=== PATIENT | male | born 1955 | race African-American/Black ===

== ENCOUNTER 2017-06-16 18:14 | Inpatient (IN) | payer MEDICARE ==
[2017-06-16] MEDS ORDERED: Morphine 4 MG/ML VIAL ONE (19:26)
[2017-06-16 19:42] LABS: #Eosinphils 0.4 thou/uL (0.0-0.7); #Lymphocytes 1.4 thou/uL (1.20-3.40); #Monocytes 0.4 thou/uL (0.11-0.59); #Neutrophils 4.3 thou/uL (1.40-6.50); %Basophils 0.6 % (0.0-1.0); %Eosinophils 5.7 % (0.0-10.0); %Lymphocytes 21.2 % (21.0-51.0); %Monocytes 6.2 % (0.0-10.0); Hematocrit 42.4 % (42.0-52.0); Mean Platelet Volume 9.1 fL (7.4-10.4); Red Blood Cell (RBC) Count 5.11 mill/uL (4.70-6.10); White Blood Cell (WBC) Count 6.5 thou/uL (4.8-10.8)
[2017-06-16 20:02] LABS: ALT (SGPT) 35 U/L (8-55); AST (SGOT) 23 U/L (5-34); Alkaline Phosphatase 103 U/L (40-150); Anion Gap 14 mmol/L (10-20); BUN (Urea Nitrogen) 17 mg/dL (8.4-25.7); Bilirubin, Total 0.5 mg/dL (0.2-1.2); CK (CPK) 280 U/L (30-200); Calc. Creatinine Clearance 0 mL/min (70-130); Carbon Dioxide 23 mmol/L (23-31); Chloride 104 mmol/L (98-107); Estimated GFR-MDRD 90; Globulin 2.6 g/dL (2.4-3.5); Protein, Total 6.6 g/dL (5.8-8.1)
[2017-06-16 20:07] LABS: Troponin I 0.155 ng/mL (< 0.028)
--- NOTE | 2017-06-16 20:12 | RAD ---
PORTABLE CHEST 06/16/17 PROVIDED CLINICAL HISTORY: Chest pain. FINDINGS: Comparison 02/05/12. The cardiac and mediastinal silhouette is unchanged in appearance. The lungs appear clear. No pleural fluid or pneumothorax apparent. IMPRESSION: No evidence for an acute cardiopulmonary process. POS: [facility]
[2017-06-16] MEDS ORDERED: Acetaminophen 325 MG TAB PO PRN (23:24)
[2017-06-16 23:48] VITALS: BMI 25.9
[2017-06-17 01:19] LABS: Troponin I 0.836 ng/mL (< 0.028)
[2017-06-17] MEDS ORDERED: Guaifenesin DM 100-10/5 ML UDCUP PO PRN (03:46)
[2017-06-17] MEDS ORDERED: Dextrose 5% in Water 1,000 ML IV PRN (03:46)
[2017-06-17] MEDS ORDERED: Dextrose 50% Abboject 50 ML SYRINGE SLOW IVP PRN (03:46)
[2017-06-17] MEDS ORDERED: ALPRAZolam 0.5 MG TAB PO PRN (03:46)
[2017-06-17] MEDS ORDERED: Nitroglycerin 0.4 MG TAB (25 Tab Bottle) PO PRN (03:46)
[2017-06-17] MEDS ORDERED: Acetaminophen 325 MG TAB PO PRN (03:46)
[2017-06-17] MEDS ORDERED: HumaLOG 300 UNITS/3 ML VIAL SC PRN (03:46)
[2017-06-17] MEDS ORDERED: HYDROcodone/Acetaminophen 10/325 mg Tablet PO PRN (03:46)
--- NOTE | 2017-06-17 04:49 | HP ---
REASON FOR ADMISSION: Chest pain. HISTORY OF PRESENTING ILLNESS: Patient gives history of left-sided chest pain which started around 5:30 p.m. yesterday. He tried to drink some water and thought if he belch the gas out in his food pipe, he would feel better, but none of this helped. He continued to have chest pain and started to have shortness of breath. He apparently fell to the floor and finally managed to call his neighbor, who called EMS and patient was brought here. No complaints of current chest pain now. He has no palpitations, PND, or orthopnea at present. He has had a stress test done in 01/2012, which was negative. No complaints of cough or expectoration or fever. PAST MEDICAL/SURGICAL HISTORY: No hypertension, history of asthma, adenoidectomy, vasectomy. CURRENT MEDICATIONS: Norvasc 10 mg daily, [place] p.r.n. for pain, Protonix 40 mg daily, Viagra p.r.n., alprazolam p.r.n., vitamin D 3000 units p.o. daily. ALLERGIES: No known drug allergies. PERSONAL HISTORY: Quit smoking a year ago. Prior to that smoked one pack a day for nearly 20 years. Does not abuse alcohol or drugs. FAMILY HISTORY: Mother of breast cancer and its complications including pericardial effusion at the age of 59 years. Father when the patient was 2 -year-old. REVIEW OF SYSTEMS: The following complete review of systems was negative, unless otherwise mentioned in the HPI or below: Constitutional: Weight loss or gain, ability to conduct usual activities. Skin: Rash, itching. Eyes: Double vision, pain. ENT/Mouth: Nose bleeding, neck stiffness, pain, tenderness. Cardiovascular: Palpitations, dyspnea on exertion, orthopnea. Respiratory: Shortness of breath, wheezing, cough, hemoptysis, fever, or night sweats. Gastrointestinal: Poor appetite, abdominal pain, heartburn, nausea, vomiting, constipation, or diarrhea. Genitourinary: Urgency, frequency, dysuria, nocturia. Musculoskeletal: Pain, swelling. Neurologic/Psychiatric: Anxiety, depression. Allergy/Immunologic: Skin rash, bleeding tendency. PHYSICAL EXAMINATION: GENERAL: Patient is a 62-year-old male who is currently not in any acute distress. VITAL SIGNS: Blood pressure 114/76, pulse 90 per minute, respiratory rate 20 per minute, temperature 97.6 degrees Fahrenheit, saturating 95% on room air. NECK: Supple, no elevated JVD. HEENT: Extraocular muscles intact. Pupils reacting to light. Oral cavity, mucous membranes are moist. No exudates or congestion. CARDIOVASCULAR SYSTEM: S1, S2 heard. Regular rhythm. RESPIRATORY SYSTEM: Air entry 1+ bilateral. Scattered rhonchi plus no wheezes. ABDOMEN: Soft, bowel sounds heard. No tenderness, rigidity, or guarding. EXTREMITIES: No peripheral edema or calf tenderness. VASCULAR SYSTEM: Peripheral pulses 2+ bilateral. No ischemic ulcerations or gangrene. CENTRAL NERVOUS SYSTEM: No gross focal deficits seen. Patient is alert, awake , oriented well. PSYCHIATRIC SYSTEM: The patient's mood is euthymic. No hallucinations or delusions. LABORATORY AND X-RAY FINDINGS: EKG done shows normal sinus rhythm at 86 beats per minute. Electrolytes are stable. BUN 17, creatinine 1.0, glucose 142. Liver enzymes within normal limits. Troponin I was indeterminate peaking up to 0.8. CK-MB is 3.6, albumin is 4.0. Chest x-ray done shows no acute cardiopulmonary abnormalities. White count of 6, H&H 14 and 42, platelet count 187. CLINICAL IMPRESSION AND PLAN: Patient will be under observation on telemetry for chest pain, rule out acute coronary syndrome. He has had indeterminate cardiac enzyme and a prior stress test done in 2011 was negative. We will consult Dr. Rivera, who is button spindler for Cardiology and also schedule him for a nuclear stress test under Cardiology close supervision. His EKGs do not reveal any ST elevation or gross ST-T wave changes at present. We will continue his Norvasc and place him on full dose aspirin for now. Pepcid 20 mg twice daily as well. We will continue to closely monitor him on telemetry. He is currently chest pain free now. MTDD
[2017-06-17 05:02] LABS: #Eosinphils 0.4 thou/uL (0.0-0.7); #Lymphocytes 1.2 thou/uL (1.20-3.40); #Monocytes 0.4 thou/uL (0.11-0.59); #Neutrophils 4.1 thou/uL (1.40-6.50); %Basophils 0.5 % (0.0-1.0); %Eosinophils 5.9 % (0.0-10.0); %Lymphocytes 19.6 % (21.0-51.0); %Monocytes 7.2 % (0.0-10.0); Hematocrit 43.4 % (42.0-52.0); Mean Platelet Volume 9.3 fL (7.4-10.4); Red Blood Cell (RBC) Count 5.21 mill/uL (4.70-6.10); White Blood Cell (WBC) Count 6.1 thou/uL (4.8-10.8)
[2017-06-17 05:09] LABS: Hemoglobin A1c 6.3 % (4.0-6.0)
[2017-06-17] MEDS: Sodium Chloride 0.9% 1,000 ML IV SCH ×2 (05:18→21:38)
[2017-06-17 05:24] LABS: Anion Gap 11 mmol/L (10-20); BUN (Urea Nitrogen) 14 mg/dL (8.4-25.7); Calc. Creatinine Clearance 100 mL/min (70-130); Calcium 9.4 mg/dL (7.8-10.44); Carbon Dioxide 27 mmol/L (23-31); Chloride 106 mmol/L (98-107); Cholesterol 234 mg/dl (< 200 Desired); Estimated GFR-MDRD Greater than 90; LDL Cholesterol, Calculated 165 mg/dL
[2017-06-17 06:20] LABS: Troponin I 1.457 ng/mL (< 0.028)
[2017-06-17] MEDS ORDERED: Heparin 1000 UNIT/NS 500ML(OR) 1,000 ML ONE (07:20)
[2017-06-17] MEDS ORDERED: Fentanyl 100 MCG/2 ML VIAL ONE (08:10)
[2017-06-17] MEDS ORDERED: Midazolam HCl 2 mg/2 ml Vial ONE (08:10)
[2017-06-17] MEDS ORDERED: Heparin 10,000 UNITS/1 ML VIAL ONE (08:39)
[2017-06-17] MEDS ORDERED: TICAGRELOR 90 MG TABLET ONE (08:39)
[2017-06-17] MEDS ORDERED: Nitroglycerin 100MG/250ML BOT 250 ML ONE (08:40)
[2017-06-17] MEDS ORDERED: Adenosine 6 MG/2 ML VIAL ONE (08:41)
[2017-06-17] MEDS ORDERED: Verapamil 5 MG/2 ML VIAL ONE (08:41)
[2017-06-17] MEDS ORDERED: Heparin 1000 UNIT/NS 500ML(OR) 500 ML ONE (08:58)
[2017-06-17] MEDS ORDERED: Enoxaparin Sodium 40 MG/0.4 ML SYRINGE SC SCH (09:00)
--- NOTE | 2017-06-17 09:07 | CON ---
REASON FOR CONSULTATION: Unstable angina. HISTORY OF PRESENT ILLNESS: Mr. Webb is a very pleasant 62-year-old gentleman who I have seen an d evaluated in the past. He was seen in the office in 2016. He also underwent a noninvasive stress study in 2011 that was negative for ischemia. He states over the last week, he has had 2 episodes of pain. It lasted for several hours. He states , he had chest tightness and heaviness associated with nausea, vomiting. He states he felt like he w as taken in cold air. He is now pain free. PAST MEDICAL HISTORY: Hypertension, vasectomy. MEDICATIONS: Norvasc, Buna, Protonix, alprazolam, vitamin D. ALLERGIES: None. SOCIAL HISTORY: Quit all tobacco products. FAMILY HISTORY: Negative for CAD. REVIEW OF SYSTEMS: Ten point review of systems is reviewed and as above, otherwise negative. PHYSICAL EXAMINATION: GENERAL: Patient is a pleasant male who is in no acute distress. The patient appears his stated age . VITAL SIGNS: Blood pressure 116/52, pulse 61, temperature 97.8. NEUROLOGIC: The patient is alert and oriented times 3 with no focal neurologic deficits. HEENT: Sclerae without icterus. Mouth has moist mucous membranes with normal pallor. NECK: No JVD. Carotid upstroke brisk. No bruits bilaterally. LUNGS: Clear to auscultation with unlabored respirations. BACK: No scoliosis or kyphosis. CARDIAC: Regular rate and rhythm with normal S1 and S2. No S3 or S4 noted. No significant rubs, mu rmurs, thrills, or gallops noted throughout the precordium. PMI is not displaced. There is no chato ternal heave. ABDOMEN: Soft, nontender, nondistended. No peritoneal signs present. No hepatosplenomegaly. No abnormal striae. EXTREMITIES: 2+ femoral and 2+ dorsalis pedis pulses. No cyanosis, clubbing, or edema. SKIN: No gross abnormalities. PERTINENT LABORATORY DATA: Hemoglobin 14.1, creatinine 0.95, peak troponin 1.4. IMAGING: EKG, normal sinus rhythm, normal EKG. IMPRESSION: 1. Unstable angina. 2. History of tobacco abuse. 3. Hypertension. RECOMMENDATIONS: Discussed the conservative versus aggressive approach. I did state the advantages to proceed with a more aggressive approach given his troponin of 1.4. I discussed coronary angiograp hy in full detail. The risks of the procedure were also discussed. The risks of the procedure inclu de but are not limited to the following: , stroke, NH, need for emergency surgery, loss of limb , bleeding, and infection, as well as a reaction to the dye causing kidney failure and needing long-t erm dialysis. I also discussed the risks of PCI to include all of the above including coronary disse ction and perforation in addition to acute stent thrombosis and restenosis. All questions about the procedure were answered. Given the above, the patient agreed to proceed with coronary angiography an d possible PCI. All questions were answered. Given the above, the patient agreed to proceed with the above procedure. I also discussed drug-coated versus nondrug coated stent placement. There are no contraindications and will proceed if needed. Further recommendations pending the above.
[2017-06-17] MEDS ORDERED: Sodium Chloride 0.9% 1,000 ML IV SCH (09:15)
--- NOTE | 2017-06-17 12:27 | PDOC.EVN ---
Event Note - Event Note Event Note: pt seen and evaluated f/u card plan
[2017-06-17] MEDS ORDERED: HYDROcodone/Acetaminophen 10/325 mg Tablet ONE (12:30)
--- NOTE | 2017-06-17 12:37 | EKG ---
Test Reason : STAT Blood Pressure : / mmHG Vent. Rate : 066 BPM Atrial Rate : 066 BPM P-R Int : 134 ms QRS Dur : 106 ms QT Int : 402 ms P-R-T Axes : 065 -67 -23 degrees QTc Int : 421 ms Normal sinus rhythm Left anterior fascicular block Minimal voltage criteria for LVH, may be normal variant Nonspecific T wave abnormality Abnormal ECG Confirmed by ABIGAIL ISAACS ([id number]) on 06/17/2017 12:37:30 PM Referred By: JENI Confirmed By:ABIGAIL ISAACS
--- NOTE | 2017-06-17 13:12 | EKG ---
Test Reason : POST STENT X2-RCA Blood Pressure : / mmHG Vent. Rate : 062 BPM Atrial Rate : 062 BPM P-R Int : 138 ms QRS Dur : 108 ms QT Int : 412 ms P-R-T Axes : 057 -58 -34 degrees QTc Int : 418 ms Normal sinus rhythm Left anterior fascicular block Minimal voltage criteria for LVH, may be normal variant Abnormal ECG Confirmed by ABIGAIL ISAACS ([id number]) on 06/17/2017 1:11:43 PM Referred By: PAMELA Confirmed By:ABIGAIL ISAACS
[2017-06-17] MEDS: Aspirin 325 MG TAB PO SCH (15:14)
[2017-06-17] MEDS: Famotidine 20 MG TAB PO SCH ×2 (15:14→21:40)
[2017-06-17] MEDS: Amlodipine 10 MG TAB PO SCH (15:14)
[2017-06-17] MEDS ORDERED: Iopamidol 370 76% 100 ML VIAL ONE (15:45)
[2017-06-18 05:30] LABS: #Eosinphils 0.5 thou/uL (0.0-0.7); #Lymphocytes 1.7 thou/uL (1.20-3.40); #Monocytes 0.4 thou/uL (0.11-0.59); %Basophils 0.6 % (0.0-1.0); %Eosinophils 6.4 % (0.0-10.0); %Lymphocytes 22.3 % (21.0-51.0); %Monocytes 4.7 % (0.0-10.0); Mean Platelet Volume 9.6 fL (7.4-10.4); Red Blood Cell (RBC) Count 5.33 mill/uL (4.70-6.10); White Blood Cell (WBC) Count 7.6 thou/uL (4.8-10.8)
[2017-06-18 05:52] LABS: ALT (SGPT) 28 U/L (8-55); AST (SGOT) 22 U/L (5-34); Alkaline Phosphatase 102 U/L (40-150); Anion Gap 14 mmol/L (10-20); BUN (Urea Nitrogen) 14 mg/dL (8.4-25.7); Bilirubin, Total 0.5 mg/dL (0.2-1.2); Calc. Creatinine Clearance 85 mL/min (70-130); Calcium 9.4 mg/dL (7.8-10.44); Carbon Dioxide 23 mmol/L (23-31); Chloride 104 mmol/L (98-107); Estimated GFR-MDRD 81; Protein, Total 6.8 g/dL (5.8-8.1)
[2017-06-18] MEDS: Famotidine 20 MG TAB PO SCH (08:29)
[2017-06-18] MEDS: Aspirin 325 MG TAB PO SCH (08:29)
[2017-06-18] MEDS: Amlodipine 10 MG TAB PO SCH (08:30)
--- NOTE | 2017-06-18 09:33 | ULT ---
RIGHT LOWER EXTREMITYRT LOWER EXTREMITY ARTERIAL DOPPLER ULTRASOUND EVALUATION: HISTORY: Right groin pain postoperative. FINDINGS: Multiple longitudinal and transverse images of the right lower extremity arterial system are obtained using a multihertz linear ray transducer. Real-time, color flow, and spectral waveform Doppler anal ysis was used to evaluate the right lower extremity arterial system. Normal triphasic waveform is seen in the right common femoral artery, femoral profunda, superficial f emoral artery, popliteal artery, posterior tibial artery, anterior tibial artery, and dorsalis pedis as well as the right perineal artery. IMPRESSION: No evidence of right lower extremity arterial Doppler ultrasound occlusion or abnormality seen. POS: [facility]
[2017-06-18 13:00] VITALS: BP 101/63; TEMP 98.2
--- NOTE | 2017-06-18 13:34 | DIS ---
DATE OF ADMISSION: 06/16/2017 DATE OF DISCHARGE: 06/18/2017 DIAGNOSES ON DISCHARGE: 1. Unstable angina, status post percutaneous coronary intervention and stent placement. 2. History of tobacco abuse. 3. Hypertension. 4. Hyperlipidemia. DISCHARGE MEDICATIONS: Include aspirin 81 mg p.o. daily, Plavix 75 mg p.o. daily, Coreg 3.125 mg p.o . b.i.d., and Lipitor 40 mg p.o. daily. CONSULTANTS: Dr. Rivera. BRIEF HOSPITAL COURSE: A 62-year-old pleasant gentleman came into the hospital with chest pain. Car diology evaluated the patient. Since the troponins were high, the decided to CAP the patient, and he had an obstruction and they stented him, he is doing much better right now. His labwork post-cath i s all stable. The patient right now is medically stable to be discharged with outpatient followup [facility] Dr. Rivera. The patient is asked to take aggressive control of cholesterol and high blood pres sure. He has already stopped smoking as per him. He is asked to come back to the emergency room in case symptoms recur. PHYSICAL EXAMINATION: VITAL SIGNS: At the time of discharge, his blood pressure was 120/60, pulse was 61, temperature 97, breathing comfortably on room air. GENERAL: The patient was lying in bed, in no apparent distress. HEENT: Atraumatic and normocephalic. Pupils equally round, react to light. Extraocular movements i ntact. Mucous membranes moist. NECK: Supple. No JVD. CHEST: Breath sounds heard. There are no rales or rhonchi. HEART: S1, S2, no murmurs or gallops. ABDOMEN: Soft. EXTREMITIES: No cyanosis, clubbing or edema. Distal pulses present. NEUROLOGIC: Alert, awake, oriented. No cranial deficits. No sensorimotor deficits. The patient is right now medically stable to be discharged. He is asked to come back to the emergenc y room in case symptoms recur. Total time for this discharge took 35 minutes.
--- NOTE | 2017-06-18 14:31 | EKG ---
Test Reason : Blood Pressure : / mmHG Vent. Rate : 070 BPM Atrial Rate : 070 BPM P-R Int : 128 ms QRS Dur : 106 ms QT Int : 414 ms P-R-T Axes : 069 -63 -46 degrees QTc Int : 447 ms Normal sinus rhythm Left anterior fascicular block Minimal voltage criteria for LVH, may be normal variant Abnormal ECG Confirmed by ABIGAIL ISAACS ([id number]) on 06/18/2017 2:30:59 PM Referred By: PAMELA Confirmed By:ABIGAIL ISAACS
--- NOTE | 2017-06-18 15:57 | PRG ---
DATE OF SERVICE: 06/18/2017 SUBJECTIVE: Mr. Webb is doing well. No chest pain or pressure noted. He did have right groin p ain. He did have a right groin ultrasound that was negative for pseudoaneurysm. OBJECTIVE: VITAL SIGNS: Blood pressure 101/63, pulse 81, temperature 98.2. LUNGS: Clear to auscultation. HEART: Regular rate and rhythm. ABDOMEN: Soft, nontender, and nontender. EXTREMITIES: No edema. IMPRESSION: 1. Unstable angina. 2. Status post stent placement. RECOMMENDATIONS: 1. Decrease aspirin to 81 mg q.a.m. 2. Add Plavix and low-dose Coreg. Plan is to follow up Mr. Webb in the next 1 to 2 weeks.
== END 2017-06-18 13:17 | disposition home or self-care (01) | DRG 247 ==
LOC: ERS 18:14 → OBSVTOIN 22:01 → 2SW 22:01
PROVIDERS: ADMIT Internal Medicine; ATTEND Internal Medicine
PROC: 027034Z Dilation of Coronary Artery, One Artery with Drug-eluting Intraluminal Device, Percutaneous Approach (ICD-10-PCS; principal; 2017-06-17)
PROC: 4A023N7 Measurement of Cardiac Sampling and Pressure, Left Heart, Percutaneous Approach (ICD-10-PCS; 2017-06-17)
PROC: B2111ZZ Fluoroscopy of Multiple Coronary Arteries using Low Osmolar Contrast (ICD-10-PCS; 2017-06-17)
PROC: B2151ZZ Fluoroscopy of Left Heart using Low Osmolar Contrast (ICD-10-PCS; 2017-06-17)
DX: I20.0 Unstable angina (principal); I10 Essential (primary) hypertension; E78.5 Hyperlipidemia, unspecified; Z87.891 Personal history of nicotine dependence
CPT/HCPCS: 36415; 36416; 71010; 76942; 80048; 80053; 80061; 82550; 82553; 83036; 84484; 85025; 85347; 85379; 92928; 93005; 93010; 93306; 93458; 93798; 93923; 94760; 96361; 96374; 99152; 99153; A4216; C1725; C1769; C1874; C1887; C9600; J0153; J1644; J2250; J2270; J3010

== ENCOUNTER 2018-11-15 13:50 | Outpatient (CLI) | payer MEDICARE ==
--- NOTE | 2018-11-15 15:20 | MRI ---
MRI cervical spine noncontrast: DATE: 11/15/2018 HISTORY: 63-year-old male with cervical radiculopathy and cervicalgia COMPARISON: None available FINDINGS: Cervical spinal cord is normal in size and signal. Vertebral body heights are maintained. Moderate to disc space narrowing at C5-6. The rest of the disc spaces are maintained. Developmentally diffusely small caliber spinal canal due to laterally positioned, developmentally short pedicles. Thi s is exacerbated by degenerative changes as described below. C1-2: No central stenosis C2-3: Mild to moderate central stenosis almost entirely on developmental basis. Dfwo-xg-uvmfrqwq righ t facet DJD. Moderate to severe left facet DJD, with left mild bone marrow edema. No right neural foraminal stenosis. Moderate to severe left neural foraminal stenosis. C3-4: Mild to moderate central stenosis almost entirely on developmental basis. Mild right facet DJD. Moderate left facet DJD. No right neural foraminal stenosis. Minimal left neural foraminal stenosis. C4-5: Shallow, minimal central and bilateral paracentral disc-osteophyte complex encroaches upon spin al canal. Moderate central spinal canal stenosis. Small bilateral uncinate process osteophytes. Moderate right facet DJD. Essentially normal left facet joint. Mild to moderate right neural foramina l stenosis. No left neural foraminal stenosis. C5-C6: Combination of slight degenerative retrolisthesis of C5 on C6, and broad-based disc-osteophyti c bar complex, encroaches upon anterior aspect of spinal canal, exacerbating the developmentally small caliber spinal canal, resulting in moderate to severe central spinal canal stenosis. Normal victor manuel ateral facet joints. Symmetrically large bilateral uncinate process osteophytes result in very severe bilateral neural foraminal stenosis. C6-7: Broad-based minimal disc bulge or disc-osteophytic bar complex exacerbates the developmentally small caliber spinal canal. Moderate to severe central spinal canal stenosis, slightly less severe than at C5-6. Moderate size bilateral uncinate process osteophytes result in moderate to severe bilat eral neural foraminal stenosis, right worse than left. Essentially normal facet joints. C7-T1: No central stenosis. Mild to moderate bilateral facet DJD. Mild to moderate bilateral neural f oraminal stenosis. IMPRESSION: 1. Cervical spondylosis, predominantly mild, exacerbating a developmentally small caliber spinal zakia l. 2. Moderate degenerative disc disease at C5-6. 3. Very severe bilateral neural foraminal stenosis at C5-6. 4. Other levels of high-grade neural foraminal stenosis. 5. Central spinal canal stenosis as listed above.
--- NOTE | 2018-11-15 15:44 | MRI ---
MRI LUMBAR SPINE WITHOUT CONTRAST: INDICATION: Lumbar radiculopathy; bilateral; history of being in [place] November 28, 2017. COMPARISON: Prior MR lumbar spine with and without contrast dated 08/03/2012 from [facility] . FINDINGS: Bone marrow signal intensity is normal appearing. No acute fracture is evident. The visualized retr operitoneum and paravertebral soft tissues appear within normal limits. At L5-S1, there is mild facet joint degenerative change and a mild broad-based bulge, but no apprecia ble central canal or neural foraminal narrowing. At L4-5, there is a broad-based bulge with mild facet joint degenerative change. Broad-based bulge d oes encroach upon the lateral recess bilaterally without definite impingement. The broad-based bulge does induce mild neural foraminal narrowing bilaterally that appears stable to the prior exam. At L3-4, there is a broad-based bulge that causes mild left neural foraminal narrowing which is stabl e. At L2-3, there is no appreciable central canal or neural foraminal narrowing. At L1-L2, there is no appreciable central canal or neural foraminal narrowing. At T12-L1, there is no appreciable central canal or neural foraminal narrowing. IMPRESSION: Stable mild spondylosis of the spine with mild neural foraminal narrowing at L3-4 and L4-5. POS: [facility]
--- NOTE | 2018-11-15 15:47 | RAD ---
RADIOGRAPH LUMBAR SPINE 3 VIEWS: DATE: 11/15/2018 HISTORY: 63-year-old male with low back pain and lumbar radiculopathy. COMPARISON: 11/29/2014 TECHNIQUE: All images weightbearing. AP. Lateral views in flexion, extension, and neutral. FINDINGS: 5 lumbar-type vertebrae. Very mild left-convex lateral curvature of lower lumbar spine. Vertebral bod y heights are maintained. No high-grade disc space narrowing at any level. No spondylolisthesis. No interval change. No instability between flexion and extension. IMPRESSION: No major pathology identified.
--- NOTE | 2018-11-15 15:58 | RAD ---
Radiograph cervical spine 4 views: DATE: 11/15/2018 HISTORY: 63-year-old male with cervicalgia and cervical radiculopathy TECHNIQUE: AP view. Lateral views in flexion, extension, and neutral. FINDINGS: At C5-6, there is moderate disc space narrowing and endplate marginal osteophytes that protrude poste riorly into the anterior aspect of the spinal canal. There is a mild degenerative retrolisthesis of C5 on C6. There is no instability between flexion and extension. All the rest of the disc spaces are maintained. No prevertebral soft tissue swelling. IMPRESSION: 1. Cervical spondylosis with moderate degenerative disc disease isolated to the C5-6 level. 2. No instability.
== END 2018-11-15 13:51 | disposition home or self-care (01) ==
LOC: BICMRI 13:50
PROVIDERS: ATTEND Surgery
DX: M47.22 Other spondylosis with radiculopathy, cervical region (principal); M47.26 Other spondylosis with radiculopathy, lumbar region; M50.122 Cervical disc disorder at C5-C6 level with radiculopathy; M48.061 Spinal stenosis, lumbar region without neurogenic claudication; M48.02 Spinal stenosis, cervical region; M48.03 Spinal stenosis, cervicothoracic region
CPT/HCPCS: 72050; 72110; 72141; 72148

== ENCOUNTER 2019-04-26 07:07 | Outpatient (CLI) | payer MEDICARE ==
[2019-04-26 11:37] LABS: Hemoglobin 15.4 g/dL (14.0-18.0); Mean Corpuscular HGB CONC 32.3 g/dL (32.0-36.0); Mean Corpuscular Hemoglobin 26.8 pg (27.0-31.0); Mean Corpuscular Volume 82.8 fL (78.0-98.0); Mean Platelet Volume 10.6 fL (7.4-10.4); Platelet Count 167 thou/uL (130-400); RBC Distribution Width 12.4 % (11.5-14.5); Red Blood Cell (RBC) Count 5.76 mill/uL (4.70-6.10)
[2019-04-26 11:53] LABS: PTT 31.8 SEC (22.9-36.1)
[2019-04-26 12:06] LABS: Anion Gap 13 mmol/L (10-20); BUN (Urea Nitrogen) 22 mg/dL (8.4-25.7); Calc. Creatinine Clearance 0 mL/min (70-130); Calcium 9.5 mg/dL (7.8-10.44); Carbon Dioxide 26 mmol/L (23-31); Chloride 105 mmol/L (98-107); Estimated GFR-MDRD 86; Glucose 143 mg/dL (80-115); Potassium 3.8 mmol/L (3.5-5.1); Sodium 140 mmol/L (136-145)
--- NOTE | 2019-04-26 16:34 | EKG ---
Test Reason : Blood Pressure : / mmHG Vent. Rate : 058 BPM Atrial Rate : 058 BPM P-R Int : 126 ms QRS Dur : 112 ms QT Int : 420 ms P-R-T Axes : 069 -65 028 degrees QTc Int : 412 ms Sinus bradycardia Left anterior fascicular block Moderate voltage criteria for LVH, may be normal variant Nonspecific T wave abnormality Abnormal ECG Confirmed by ABIGAIL ISAACS ([id number]) on 04/26/2019 4:34:00 PM Referred By: YOHANA Confirmed By:ABIGAIL ISAACS
== END 2019-04-26 07:08 | disposition home or self-care (01) ==
LOC: LABBT 07:07
PROVIDERS: ATTEND Surgery
DX: Z01.818 Encounter for other preprocedural examination (principal); M50.10 Cervical disc disorder with radiculopathy, unspecified cervical region; M48.02 Spinal stenosis, cervical region
CPT/HCPCS: 80048; 85027; 85610; 85730; 93005; 93010

== ENCOUNTER 2019-05-03 05:42 | Day surgery (SDC) | payer MEDICARE ==
[2019-05-03] MEDS ORDERED: Sodium Chloride 0.9% 10 ML ONE (06:46)
[2019-05-03] MEDS ORDERED: Thrombin 5000 UNITS/5 ML VIAL ONE (06:46)
[2019-05-03] MEDS ORDERED: Fentanyl 100 MCG/2 ML VIAL ONE ×2 (07:00→12:22)
[2019-05-03] MEDS ORDERED: Midazolam HCl 2 mg/2 ml Vial ONE (07:15)
[2019-05-03] MEDS ORDERED: HYDROmorphone 2 MG/ML VIAL ONE (08:02)
[2019-05-03] MEDS ORDERED: Phenylephrine HCL 10 MG/ML VIAL ONE (08:49)
[2019-05-03] MEDS ORDERED: Morphine 2 MG/ML SYRINGE SLOW IVP PRN (10:10)
[2019-05-03] MEDS ORDERED: Acetaminophen/Codeine 30-300mg Tablet PO PRN (10:10)
[2019-05-03] MEDS ORDERED: Mag-Al 1200 mg/1200 mg/30 ML UDCUP PO PRN (10:10)
[2019-05-03] MEDS ORDERED: Bisacodyl 10 MG SUPP PR PRN (10:10)
[2019-05-03] MEDS ORDERED: HYDROcodone/Acetaminophen 7.5/325 mg Tablet PO PRN (10:10)
[2019-05-03] MEDS ORDERED: Ondansetron PF 4 MG/2 ML Vial IVP PRN (10:10)
[2019-05-03] MEDS ORDERED: Acetaminophen 325 MG TAB PO PRN (10:10)
[2019-05-03] MEDS ORDERED: tiZANidine HCl 4 MG TAB PO PRN (10:10)
[2019-05-03] MEDS ORDERED: Milk Of Magnesia 30 ML UDCUP PO PRN (10:10)
[2019-05-03] MEDS ORDERED: Fleet Enema 133 ML BOT PR PRN (10:10)
--- NOTE | 2019-05-03 10:12 | OP ---
DATE OF PROCEDURE: 05/03/2019 LOCATION: OR 12. TANK CAR REPAIRER: Feliciano Holloway PA-C. PREPROCEDURE DIAGNOSIS: Cervical radiculopathy with neck and arm pain with stenosis. POSTPROCEDURE DIAGNOSIS: Cervical radiculopathy with neck and arm pain with stenosis. PROCEDURES PERFORMED: 1. Anterior C5-C6 and C6-C7 diskectomies for decompression of spinal cord nerve roots. 2. Placement of interbody spacer, packed with local bone autograft obtained at same incision, allograft C5-C6 and C6-C7. 3. Anterior cervical plate and screw fixation, C5, C6, C7. 4. Use of operative microscope for microdissection. DESCRIPTION OF PROCEDURE: After informed consent was obtained from the patient, the patient was brought to the OR. Proper patient, pause, and identification were carried out. He was placed under excellent general endotracheal anesthesia and positioned supine on the OR table. All appropriate points were padded. We identified the transverse dave to allow for approach to the anterior C5, C6, C7 segments. We then opened the wound following sterile cleansing, preparation, draping, and proceeded lateral to the tracheoesophageal bundle medial to the right carotid sheath. We identified the prevertebral layer of deep cervical fascia and longus colli muscles. These were swept laterally. We then performed distraction following localization of C5-C6. Diskectomy was performed with the use of the operative microscope for microdissection. We had excellent decompression of spinal cord nerve roots. We then turned our attention to preparation of endplates. Interbody spacer packed with graft was placed for initiation of arthrodesis and structural support at C5-C6. The procedure was then repeated at C6-C7 diskectomy for decompression of spinal cord nerve roots, and we placed an interbody spacer packed with local bone autograft, obtained at same incision and allograft at C6-C7. For initiation of arthrodesis, we then were satisfied with our decompression and our structural support. Microscope was removed. We were satisfied anterior cervical plate and screw fixation. Final tightening then occurred. Copious irrigation occurred throughout as did maximizing hemostasis. The wound was then closed in anatomic layers over drain. The patient emerged from anesthesia. Job ID: [id number]
[2019-05-03] MEDS ORDERED: HYDROmorphone 2 MG/ML VIAL SLOW IVP PRN (10:14)
[2019-05-03] MEDS ORDERED: Ondansetron HCl/PF 4 MG/2 ML Vial IVP PRN (10:14)
[2019-05-03] MEDS ORDERED: Promethazine HCl 25 MG/ML VIAL SLOW IVP PRN (10:14)
[2019-05-03] MEDS ORDERED: Meperidine HCl/PF 25 MG/ML VIAL SLOW IVP PRN (10:14)
[2019-05-03] MEDS ORDERED: Promethazine HCl 25 MG/ML VIAL IM PRN (10:14)
[2019-05-03] MEDS ORDERED: Pantoprazole 40 MG VIAL IVP SCH (10:15)
[2019-05-03] MEDS ORDERED: Sodium Chloride 0.9% (PF) 10 ML VIAL FS PRN (10:38)
[2019-05-03] MEDS ORDERED: Dexamethasone 20 MG/5 ML VIAL ONE (13:17)
[2019-05-03] MEDS ORDERED: Rocuronium Bromide 10 MG/ML (10ML VIAL) ONE (13:17)
[2019-05-03] MEDS ORDERED: PHENYLEPHRINE-NS 100 MCG/ML 10 ML SYRINGE ONE (13:17)
[2019-05-03] MEDS ORDERED: Glycopyrrolate 0.2 MG/ML 5 ML SYRINGE ONE (13:17)
[2019-05-03] MEDS ORDERED: Esmolol 100 MG/10 ML VIAL ONE (13:17)
[2019-05-03] MEDS ORDERED: Ondansetron PF 4 MG/2 ML Vial ONE (13:17)
[2019-05-03] MEDS ORDERED: diphenhydrAMINE 50 MG/ML VIAL ONE (13:17)
[2019-05-03] MEDS ORDERED: PROPOFOL 200 MG/20 ML VIAL ONE (13:17)
[2019-05-03 14:08] VITALS: BMI 27.1
[2019-05-03] MEDS: CEFAZOLIN 2 GM in Premix Bag 1 BAG IVPB SCH ×2 (14:54→21:36)
[2019-05-03] MEDS: Sodium Chloride 0.9% 1,000 ML IV SCH (15:32)
[2019-05-03] MEDS: ALPRAZolam 0.5 MG TAB PO SCH (18:11)
[2019-05-03] MEDS: Carvedilol 3.125 MG TAB PO SCH (20:12)
[2019-05-03] MEDS ORDERED: Escitalopram Oxalate 10 mg Tablet PO SCH (21:00)
[2019-05-04 03:17] VITALS: TEMP 98.4
[2019-05-04 06:07] LABS: #Lymphocytes 1.7 thou/uL (1.20-3.40); #Monocytes 1.1 thou/uL (0.11-0.59); #Neutrophils 9.3 thou/uL (1.40-6.50); %Basophils 0.2 % (0.0-1.0); %Eosinophils 0.1 % (0.0-10.0); %Lymphocytes 13.9 % (21.0-51.0); %Monocytes 8.7 % (0.0-10.0); %Neutrophils 77.1 % (42.0-75.0); Hemoglobin 13.7 g/dL (14.0-18.0); Mean Corpuscular HGB CONC 32.7 g/dL (32.0-36.0); Mean Corpuscular Hemoglobin 26.9 pg (27.0-31.0); Mean Corpuscular Volume 82.3 fL (78.0-98.0); Platelet Count 161 thou/uL (130-400); RBC Distribution Width 12.2 % (11.5-14.5); Red Blood Cell (RBC) Count 5.11 mill/uL (4.70-6.10); White Blood Cell (WBC) Count 12.1 thou/uL (4.8-10.8)
[2019-05-04] MEDS: CEFAZOLIN 2 GM in Premix Bag 1 BAG IVPB SCH (06:26)
[2019-05-04 06:31] LABS: Anion Gap 14 mmol/L (10-20); BUN (Urea Nitrogen) 9 mg/dL (8.4-25.7); Calc. Creatinine Clearance 105 mL/min (70-130); Calcium 9.1 mg/dL (7.8-10.44); Carbon Dioxide 26 mmol/L (23-31); Chloride 105 mmol/L (98-107); Estimated GFR-MDRD Greater than 90; Glucose 149 mg/dL (80-115); Sodium 141 mmol/L (136-145)
[2019-05-04] MEDS: Sodium Chloride 0.9% 1,000 ML IV SCH (06:39)
[2019-05-04] MEDS ORDERED: metFORMIN 500 MG TAB PO SCH (08:00)
[2019-05-04 08:10] VITALS: BP 150/73
[2019-05-04] MEDS ORDERED: Pantoprazole 40 MG VIAL IVP SCH (09:00)
[2019-05-04] MEDS ORDERED: Atorvastatin Calcium 40 MG TAB PO SCH (09:00)
[2019-05-04] MEDS ORDERED: Amlodipine 10 MG TAB PO SCH (09:00)
[2019-05-04] MEDS: ALPRAZolam 0.5 MG TAB PO SCH (09:56)
[2019-05-04] MEDS: Carvedilol 3.125 MG TAB PO SCH (09:57)
--- NOTE | 2019-05-04 18:45 | DIS ---
DATE OF ADMISSION: 05/03/2019 DATE OF DISCHARGE: 05/04/2019 This is Feliciano Holloway PA-C dictating a report for Lizandro Heard MD. DISCHARGE DIAGNOSES: 1. Cervical radiculopathy. 2. Cervical stenosis. 3. Hypertension. 4. Diabetes mellitus, type 2. 5. Anxiety. 6. Coronary artery disease, on Plavix and aspirin. HOSPITAL COURSE: Mr. Webb was admitted to undergo multilevel ACDF with Dr. Heard. One XIN drain was placed and there was no CSF leak intraoperatively. The patient's surgery was without complication. He required one overnight stay for adequate monitoring of his drain output as well as pain control. At the time of discharge, the patient had significant improvement in neck and bilateral upper extremity pain. His main complaint was swallowing difficulties and sore throat. He had excellent strength in the bilateral upper and bilateral lower extremities at the time of discharge. His XIN drain was removed and he was wearing a well-fitting [place] J collar. The patient was given appropriate patient education and outpatient followups with the understanding to call the office with questions or concerns prior to his next followup appointment. Again, he was pleased with his outcome postoperatively and doing well. Job ID: [id number]
== END 2019-05-04 11:12 | disposition home or self-care (01) ==
LOC: SDC 05:42 → EEVIPCON 08:45 → 2SW 10:09 → SDC 05-04 11:12
PROVIDERS: ATTEND Surgery
PROC: 0RG20A0 Fusion of 2 or more Cervical Vertebral Joints with Interbody Fusion Device, Anterior Approach, Anterior Column, Open Approach (ICD-10-PCS; principal; 2019-05-03)
PROC: 0RG2070 Fusion of 2 or more Cervical Vertebral Joints with Autologous Tissue Substitute, Anterior Approach, Anterior Column, Open Approach (ICD-10-PCS; 2019-05-03)
PROC: 0RT30ZZ Resection of Cervical Vertebral Disc, Open Approach (ICD-10-PCS; 2019-05-03)
DX: M50.122 Cervical disc disorder at C5-C6 level with radiculopathy (principal); M48.02 Spinal stenosis, cervical region; I10 Essential (primary) hypertension; E11.9 Type 2 diabetes mellitus without complications; F41.9 Anxiety disorder, unspecified; I25.10 Atherosclerotic heart disease of native coronary artery without angina pectoris; Z79.02 Long term (current) use of antithrombotics/antiplatelets; Z79.82 Long term (current) use of aspirin; Z79.84 Long term (current) use of oral hypoglycemic drugs; Z79.899 Other long term (current) drug therapy; Z88.5 Allergy status to narcotic agent
CPT/HCPCS: 20930; 20936; 22551; 22552; 22853 ×2; 76000; 80048; 85025; C1776; 36415; C9113; J0131; J0690; J1100; J1170; J1200; J2250; J2370; J2405; J2704; J3010; J3490

== ENCOUNTER 2019-06-20 08:23 | Outpatient (CLI) | payer MEDICARE ==
--- NOTE | 2019-06-20 08:44 | RAD ---
Exam: CERVICAL SPINE 4 VIEWS: HISTORY: Pain. Previous spinal fusion surgery. FINDINGS: On the open-mouth projection, lateral masses of C1 and C2 articulate appropriately. Intact odontoid p rocess. In the AP projection, no malalignment. Cervical fusion plate with transvertebral body screw at C5, C6 and C7. No perihardware lucency. C5-C6 and C6-C7 disc prostheses. Straightening of normal cervical lordosis may be due to fusion versus patient position. Normal predental space. No prevertebral soft tissue swelling. Cervicothoracic junction is unremarkable. IMPRESSION: Uncomplicated cervical fusion. Transcribed Date/Time: 06/20/2019 8:52 AM
== END 2019-06-20 08:24 | disposition home or self-care (01) ==
LOC: TBSIIMAG 08:23
PROVIDERS: ATTEND Surgery
DX: M54.2 Cervicalgia (principal); Z98.1 Arthrodesis status
CPT/HCPCS: 72040

== ENCOUNTER 2019-07-27 08:06 | Outpatient (CLI) | payer MEDICARE ==
[2019-07-27 09:59] LABS: Hemoglobin 15.4 g/dL (14.0-18.0); Mean Corpuscular HGB CONC 32.6 g/dL (32.0-36.0); Mean Corpuscular Hemoglobin 27.3 pg (27.0-31.0); Mean Corpuscular Volume 83.7 fL (78.0-98.0); Mean Platelet Volume 9.9 fL (7.4-10.4); Platelet Count 191 thou/uL (130-400); RBC Distribution Width 12.6 % (11.5-14.5); Red Blood Cell (RBC) Count 5.64 mill/uL (4.70-6.10)
[2019-07-27 10:06] LABS: PTT 32.8 SEC (22.9-36.1); Prothrombin Time 13.2 SEC (12.0-14.7)
[2019-07-27 10:15] LABS: Anion Gap 15 mmol/L (10-20); BUN (Urea Nitrogen) 14 mg/dL (8.4-25.7); Calc. Creatinine Clearance 0 mL/min (70-130); Calcium 9.9 mg/dL (7.8-10.44); Carbon Dioxide 24 mmol/L (23-31); Chloride 107 mmol/L (98-107); Estimated GFR-MDRD Greater than 90; Glucose 117 mg/dL (80-115); Potassium 4.6 mmol/L (3.5-5.1); Sodium 141 mmol/L (136-145)
== END 2019-07-27 08:07 | disposition home or self-care (01) ==
LOC: LABBT 08:06
PROVIDERS: ATTEND Surgery
DX: Z01.818 Encounter for other preprocedural examination (principal); M54.16 Radiculopathy, lumbar region; M48.061 Spinal stenosis, lumbar region without neurogenic claudication
CPT/HCPCS: 80048; 85027; 85610; 85730; 93005; 93010

== ENCOUNTER 2019-08-02 05:55 | Day surgery (SDC) | payer MEDICARE ==
[2019-08-02] MEDS ORDERED: Thrombin 5000 UNITS/5 ML VIAL ONE (06:27)
[2019-08-02] MEDS ORDERED: Midazolam HCl 2 mg/2 ml Vial ONE (07:05)
[2019-08-02] MEDS ORDERED: Fentanyl 100 MCG/2 ML VIAL ONE ×3 (07:18→10:11)
[2019-08-02] MEDS ORDERED: HYDROmorphone 2 MG/ML VIAL SLOW IVP PRN (08:53)
[2019-08-02] MEDS ORDERED: Ondansetron HCl/PF 4 MG/2 ML Vial IVP PRN (08:53)
[2019-08-02] MEDS ORDERED: Promethazine HCl 25 MG/ML VIAL SLOW IVP PRN (08:53)
[2019-08-02] MEDS ORDERED: PACU-Morphine 4MG/ML VIAL SLOW IVP PRN (08:53)
[2019-08-02] MEDS ORDERED: Promethazine HCl 25 MG/ML VIAL IM PRN (08:53)
[2019-08-02] MEDS ORDERED: Morphine Sulfate 2 MG/ML SYRINGE SLOW IVP PRN (08:53)
[2019-08-02] MEDS ORDERED: Fleet Enema 133 ML BOT PR PRN (09:01)
[2019-08-02] MEDS ORDERED: Milk Of Magnesia 30 ML UDCUP PO PRN (09:01)
[2019-08-02] MEDS ORDERED: Mag-Al 1200 mg/1200 mg/30 ML UDCUP PO PRN (09:01)
[2019-08-02] MEDS ORDERED: Bisacodyl 10 MG SUPP PR PRN (09:01)
[2019-08-02] MEDS ORDERED: Ondansetron PF 4 MG/2 ML Vial IVP PRN (09:01)
[2019-08-02] MEDS ORDERED: Acetaminophen/Codeine 30-300mg Tablet PO PRN (09:01)
[2019-08-02] MEDS ORDERED: Acetaminophen 325 MG TAB PO PRN (09:01)
[2019-08-02] MEDS ORDERED: HYDROmorphone 0.5 MG/0.5 ML SYRINGE ONE ×4 (10:11→11:49)
--- NOTE | 2019-08-02 10:19 | OP ---
DATE OF PROCEDURE: 08/02/2019 LOCATION: OR 11. DIRECTOR OF EDUCATION: Gale Selby PA-C PREPROCEDURE DIAGNOSIS: Lumbar stenosis with low back and leg pain. POSTPROCEDURE DIAGNOSIS: Lumbar stenosis with low back and leg pain. PROCEDURE PERFORMED: L4-L5 laminectomy, partial facetectomy, and foraminotomies. DESCRIPTION OF PROCEDURE: After informed consent was obtained from the patient, the patient was brought to the OR. Proper patient, pause, and identification were carried out. He was placed prone on the OR table, and all appropriate points were padded. L4-L5 segment had a linear dave drawn out and this area was sterilely cleansed, prepared, and draped. Proper patient, pause, and identification were carried out. The wound was then opened with a combination of sharp, monopolar, and blunt dissection. Identified the L4-L5 segment, and the wound was opened with subperiosteal dissection. Localization film confirmed our area of interest. We then performed L4-L5 laminectomies, partial facetectomies, foraminotomies of the L4-L5 nerve roots. There was no spinal fluid leak. Copious irrigation occurred throughout as did maximal hemostasis. The wound was then closed in anatomic layers following sprinkling of vancomycin powder. The patient emerged from anesthesia. Job ID: [id number]
[2019-08-02] MEDS ORDERED: Promethazine HCl 25 MG/ML VIAL ONE (12:20)
[2019-08-02] MEDS ORDERED: Rocuronium Bromide 10 MG/ML (10ML VIAL) ONE (13:40)
[2019-08-02] MEDS ORDERED: Esmolol 100 MG/10 ML VIAL ONE (13:40)
[2019-08-02] MEDS ORDERED: Ondansetron PF 4 MG/2 ML Vial ONE (13:40)
[2019-08-02] MEDS ORDERED: PHENYLEPHRINE-NS 100 MCG/ML 10 ML SYRINGE ONE (13:40)
[2019-08-02] MEDS ORDERED: Glycopyrrolate 0.2 MG/ML 5 ML SYRINGE ONE (13:40)
[2019-08-02] MEDS ORDERED: Lidocaine 1% PF 5 ML VIAL ONE (13:40)
[2019-08-02] MEDS ORDERED: PROPOFOL 200 MG/20 ML VIAL ONE (13:40)
[2019-08-02] MEDS ORDERED: Metoclopramide HCl 10 MG/2 ML VIAL ONE (13:40)
[2019-08-02] MEDS: HYDROcodone/Acetaminophen 7.5/325 mg Tablet PO PRN ×2 (14:39→20:26)
[2019-08-02] MEDS: Sodium Chloride 0.9% 1,000 ML IV SCH ×2 (15:33→22:01)
[2019-08-02] MEDS: tiZANidine HCl 4 MG TAB PO PRN (15:35)
[2019-08-02 16:26] VITALS: BMI 26.2
[2019-08-02] MEDS: CEFAZOLIN 2 GM in Premix Bag 1 BAG IVPB SCH ×2 (17:17→22:00)
[2019-08-02] MEDS: ALPRAZolam 0.5 MG TAB PO SCH (17:17)
[2019-08-02] MEDS: Carvedilol 3.125 MG TAB PO SCH (20:26)
[2019-08-02] MEDS: Escitalopram Oxalate 10 mg Tablet PO SCH (20:26)
[2019-08-03] MEDS: tiZANidine HCl 4 MG TAB PO PRN ×3 (00:40→17:44)
[2019-08-03] MEDS: HYDROcodone/Acetaminophen 7.5/325 mg Tablet PO PRN ×4 (02:08→20:22)
--- NOTE | 2019-08-03 09:08 | PRG ---
DATE OF SERVICE: 08/03/2019 SUBJECTIVE: Mr. Webb is postop day #1 after undergoing an L4-L5 laminectomies, partial facetectomies, and foraminotomies yesterday. The patient reports that he has significant pain in his lower back and right hip. However, he is pleased that the right roger that was present before surgery has resolved. He denies leg pain, paresthesias, or weakness. He states that he was able to ambulate to the restroom and back without difficulty. He denies any urinary complaints. He completed his post-op prophylactic Ancef doses. PHYSICAL EXAMINATION: The patient is awake, alert, and appropriate. He has excellent strength in his bilateral lower extremity myotomes and moves both legs without difficulty. Sensation to light touch is intact and equal in both legs. Patient will remain in hospital today for optimization of pain control. Added Valium 5 mg po q8hrs prn muscle spasm. Encouraged mobilization and PT. He will likely be discharged home tomorrow. We will re-evaluate patient in the morning. Call sooner for any neurologic changes or other concerns. Job ID: [id number] [facility]
[2019-08-03] MEDS: ALPRAZolam 0.5 MG TAB PO SCH ×2 (09:43→17:44)
[2019-08-03] MEDS: Carvedilol 3.125 MG TAB PO SCH ×2 (09:43→20:22)
[2019-08-03] MEDS: metFORMIN 500 MG TAB PO SCH (09:44)
[2019-08-03] MEDS: Atorvastatin Calcium 40 MG TAB PO SCH (09:44)
[2019-08-03] MEDS: Amlodipine 10 MG TAB PO SCH (09:44)
[2019-08-03] MEDS: Sodium Chloride 0.9% 1,000 ML IV SCH (15:09)
[2019-08-03] MEDS: Diazepam 5 MG TAB PO PRN (15:11)
[2019-08-03] MEDS: Escitalopram Oxalate 10 mg Tablet PO SCH (20:22)
[2019-08-04] MEDS: HYDROcodone/Acetaminophen 7.5/325 mg Tablet PO PRN ×3 (02:50→13:19)
[2019-08-04] MEDS: tiZANidine HCl 4 MG TAB PO PRN ×2 (02:54→13:20)
[2019-08-04 08:13] VITALS: BP 125/88; TEMP 98
[2019-08-04] MEDS: metFORMIN 500 MG TAB PO SCH (08:37)
[2019-08-04] MEDS: Atorvastatin Calcium 40 MG TAB PO SCH (08:37)
[2019-08-04] MEDS: Carvedilol 3.125 MG TAB PO SCH (08:39)
[2019-08-04] MEDS: Amlodipine 10 MG TAB PO SCH (08:39)
[2019-08-04] MEDS: ALPRAZolam 0.5 MG TAB PO SCH (08:40)
--- NOTE | 2019-08-04 10:36 | PRG ---
DATE OF SERVICE: 08/04/2019 Mr. Webb is postoperative day #1 following L4-L5 laminectomy. He has had improvement in his leg pain. He did notice some paresthesias in his thighs and felt as if his legs were going to buckle, but this was one time and his strength is excellent throughout his bilateral lower extremity myotomes. As such, I will plan for dismissal today. We will give him a rolling walker for safety when he is at home. I am very pleased with how he has done. We discussed wound care as well and his wound is healing satisfactorily. Job ID: [id number]
[2019-08-04] MEDS: Diazepam 5 MG TAB PO PRN (10:50)
== END 2019-08-04 14:11 | disposition home health service (06) ==
LOC: SDC 05:55 → T4-A 09:04 → SDC 08-04 14:11
PROVIDERS: ATTEND Surgery
PROC: 01NB0ZZ Release Lumbar Nerve, Open Approach (ICD-10-PCS; principal; 2019-08-02)
DX: M48.061 Spinal stenosis, lumbar region without neurogenic claudication (principal); M54.16 Radiculopathy, lumbar region; Z79.02 Long term (current) use of antithrombotics/antiplatelets; Z79.82 Long term (current) use of aspirin; Z79.899 Other long term (current) drug therapy; Z88.5 Allergy status to narcotic agent; Z98.1 Arthrodesis status
CPT/HCPCS: 76000; J0690; J1170; J2001; J2250; J2405; J2550; J2704; J2765; J3010; J3370; J3490

== ENCOUNTER 2019-08-06 03:27 | Observation (INO) | payer MEDICARE ==
[2019-08-06 04:31] LABS: #Eosinphils 0.2 thou/uL (0.0-0.7); #Lymphocytes 1.5 thou/uL (1.20-3.40); #Monocytes 0.6 thou/uL (0.11-0.59); #Neutrophils 4.9 thou/uL (1.40-6.50); %Basophils 0.6 % (0.0-1.0); %Eosinophils 3.4 % (0.0-10.0); %Lymphocytes 20.6 % (21.0-51.0); %Monocytes 7.9 % (0.0-10.0); %Neutrophils 67.5 % (42.0-75.0); Hemoglobin 12.2 g/dL (14.0-18.0); Mean Corpuscular HGB CONC 33.3 g/dL (32.0-36.0); Mean Corpuscular Hemoglobin 27.7 pg (27.0-31.0); Mean Corpuscular Volume 83.1 fL (78.0-98.0); Mean Platelet Volume 10.4 fL (7.4-10.4); Platelet Count 155 thou/uL (130-400); RBC Distribution Width 12.1 % (11.5-14.5); Red Blood Cell (RBC) Count 4.41 mill/uL (4.70-6.10); White Blood Cell (WBC) Count 7.3 thou/uL (4.8-10.8)
[2019-08-06 04:49] LABS: ALT (SGPT) 25 U/L (8-55); AST (SGOT) 27 U/L (5-34); Albumin 3.6 g/dL (3.4-4.8); Alkaline Phosphatase 75 U/L (40-110); Anion Gap 13 mmol/L (10-20); BUN (Urea Nitrogen) 12 mg/dL (8.4-25.7); Bilirubin, Total 1.1 mg/dL (0.2-1.2); Calc. Creatinine Clearance 0 mL/min (70-130); Calcium 8.9 mg/dL (7.8-10.44); Carbon Dioxide 26 mmol/L (23-31); Chloride 103 mmol/L (98-107); Estimated GFR-MDRD Greater than 90; Globulin 2.7 g/dL (2.4-3.5); Glucose 144 mg/dL (80-115); Protein, Total 6.3 g/dL (5.8-8.1); Sodium 138 mmol/L (136-145)
[2019-08-06] MEDS ORDERED: Nitroglycerin 0.4 MG TAB (25 Tab Bottle) PO PRN (05:26)
--- NOTE | 2019-08-06 05:52 | PDOC.EVN ---
Event Note - Event Note Event Note: [id number] [facility]
[2019-08-06 06:42] VITALS: BMI 25.5
[2019-08-06 08:04] LABS: Troponin I Less than 0.010 ng/mL (< 0.028)
[2019-08-06] MEDS ORDERED: Aspirin 325 mg Enteric Coated Tablet PO SCH (09:00)
[2019-08-06] MEDS ORDERED: HYDROcodone/Acetaminophen 5/325 mg Tablet PO PRN (09:06)
[2019-08-06] MEDS ORDERED: ALPRAZolam 0.5 MG TAB PO PRN (09:06)
[2019-08-06] MEDS ORDERED: diphenhydrAMINE 25 MG CAP PO PRN (09:09)
[2019-08-06] MEDS ORDERED: Labetalol HCl 100 MG/20 ML VIAL SLOW IVP PRN (09:09)
[2019-08-06] MEDS ORDERED: Melatonin 3 MG TAB PO PRN (09:09)
[2019-08-06] MEDS ORDERED: Docusate 100 MG CAP PO PRN (09:09)
[2019-08-06] MEDS ORDERED: Benzonatate 100 MG CAP PO PRN (09:09)
[2019-08-06] MEDS ORDERED: Ondansetron ODT 4 MG TAB PO PRN (09:10)
[2019-08-06] MEDS ORDERED: HYDROcodone/Acetaminophen 7.5/325 mg Tablet PO PRN (09:10)
[2019-08-06] MEDS ORDERED: Calcium Carbonate 500 MG ChewTAB PO PRN (09:10)
[2019-08-06] MEDS ORDERED: Ondansetron PF 4 MG/2 ML Vial IVP PRN (09:10)
[2019-08-06] MEDS ORDERED: Senokot S 8.6-50 MG TAB PO PRN (09:10)
[2019-08-06] MEDS ORDERED: Acetaminophen 325 MG TAB PO PRN (09:10)
[2019-08-06] MEDS ORDERED: Regadenoson 0.4 MG/5 ML SYRINGE ONE (09:47)
[2019-08-06] MEDS ORDERED: Iopamidol-370 76% 500 ML 1 ML ONE (09:57)
--- NOTE | 2019-08-06 10:13 | CT ---
PRELIMINARY REPORT/[facility]/EMERGENCY AFTER HOURS PROCEDURE EXAM: CTA Chest with Intravenous Contrast CLINICAL HISTORY: 64 yo M with hx of ACS presenting with sudden onset chest pain. Pt took full aspiri n at home, chest pain has now resolved. Pt with recent surgery and dc from hospital TECHNIQUE: Axial CTA images of the chest with intravenous contrast. MIP reconstructed images were cre ated and reviewed. CONTRAST: With; ISOVUE 370,100mL COMPARISON: None provided. FINDINGS: PULMONARY ARTERIES There is no intraluminal filling defect suspicious for PE. AORTA No thoracic aortic aneurysm or dissection. LUNGS The lungs are clear. No pulmonary mass. No focal airspace onsolidation. Bilateral apical pleur al parenchymal scarring is identified. PLEURAL SPACES No pleural effusion. No pneumothorax. HEART AND MEDIASTINUM No cardiomegaly. No significant pericardial effusion. LYMPH NODES No lymphadenopathy. BONES No focal osseous abnormality or acute fracture. CHEST WALL AND UPPER ABDOMEN Images through the upper abdomen are unremarkable. The chest wall is unr emarkable. Small retrocardiac hiatal hernia seen. IMPRESSION: Unremarkable CTA of the chest. ELECTRONICALLY SIGNED BY: Rajendra Garcia MD Aug 06, 2019 4:26:39 AM ELECTORATE OFFICER FINAL REPORT CT ANGIO OF CHEST PERFORMED WITH INTRAVENOUS CONTRAST ENHANCEMENT WITH 3D RECONSTRUCTIONS: HISTORY: Sudden onset of chest pain. FINDINGS: The lungs are clear of any infiltrative process. There are no pulmonary nodules. No significant mediastinal or hilar lymphadenopathy. The thoracic aorta is normal in caliber. There is fairly good pulmonary artery opacification, there is no CT evidence for pulmonary embolus. Visualized liver parenchyma shows no focal findings. Right and left adrenal glands are normal. IMPRESSION: 1. No CT evidence for pulmonary embolus. 2. This report is in agreement with the temporary report issued by [facility]. POS: [facility]
--- NOTE | 2019-08-06 10:45 | RAD ---
PORTABLE CHEST: HISTORY: Sudden onset chest pain. COMPARISON: 06/16/2017 study. FINDINGS: Heart size and mediastinum are within normal limits. The lungs are clear of any infiltrative process . No signs of failure. IMPRESSION: No active intrathoracic disease. POS: [facility]
[2019-08-06 11:21] LABS: Troponin I Less than 0.010 ng/mL (< 0.028)
[2019-08-06 11:28] VITALS: BP 142/77; TEMP 98.3
[2019-08-06] MEDS ORDERED: Heparin 5,000 UNITS/ML VIAL SC SCH (15:00)
--- NOTE | 2019-08-06 18:14 | NM ---
EXAM: CARDIAC SPECT HISTORY: Chest pain, [place], asthma, hypertension, former smoker TECHNIQUE: A myocardial perfusion scan was performed using the single isotope 1 day protocol with cass hnetium 99m sestamibi. [10 mCi] was injected intravenously for the rest exam followed by 30 mCi for the stress study. Pharmacologic stress with Lexiscan was monitored and interpreted by Dr. Rivera FINDINGS: Homogeneous tracer distribution is seen in the myocardial segments on stress and rest image s without fixed or reversible defects. Gated SPECT LVEF: 50% Wall motion exam: Normal IMPRESSION: Normal myocardial perfusion scan
[2019-08-06] MEDS ORDERED: Carvedilol 3.125 MG TAB PO SCH (21:00)
[2019-08-06] MEDS ORDERED: Escitalopram Oxalate 10 mg Tablet PO SCH (21:00)
--- NOTE | 2019-08-06 21:07 | DIS ---
DATE OF ADMISSION: 08/06/2019 DATE OF DISCHARGE: 08/06/2019 REASON FOR HOSPITALIZATION: Chest pain. SIGNIFICANT FINDINGS: There were no acute cardiothoracic process ongoing. PROCEDURES PERFORMED AND TREATMENTS RENDERED: The patient is a 64-year-old gentleman, who presented to [facility] on 08/06/2019 with chest pain. The patient with recent spine surgery by Dr. Heard, please see full operative report for details. The patient has tolerated the surgery well without operative complications. The patient with CT angiography of the chest on admission, please see full radiographic report for details-there was no acute pulmonary embolism or other acute cardiothoracic process. With pulmonary embolism and other acute intrathoracic process ruled out, the next step was a nuclear medicine stress test. This was performed on 08/06/2019-please see full stress test report for details-there was no reversible ischemia identified. I discussed this case with Dr. Rivera, who is the patient's primary vice president of product marketing and he states that with negative stress test, the patient can be discharged and follow up in the outpatient setting for other non life-threatening causes of chest discomfort. The patient was discharged in stable condition and recommended to follow up with Dr. Rivera in the next 1 to 2 weeks. The patient recommended to follow up with primary care physician in the next 5 to 7 days. CONDITION ON DISCHARGE: Stable. SPECIFIC INSTRUCTIONS FOR THE PATIENT/FAMILY: 1. The patient is recommended to take all medications as directed. 2. The patient is recommended to follow up with Dr. Rivera, Cardiology, in the next 1 to 2 weeks. 3. The patient is recommended to follow up with primary care physician in the next 5 to 7 days. 4. The patient is recommended to follow up with Dr. Heard at his upcoming appointment. 5. The patient is recommended to return to acute care hospital immediately if signs or symptoms return, worsen, or any other new symptoms occur. DISCHARGE MEDICATIONS: Please see full discharge medications for details. There were no new medications added. Greater than 31 minutes spent coordinating care and discharge process for this patient. Job ID: [id number]
--- NOTE | 2019-08-07 05:06 | HP ---
CHIEF COMPLAINT: Chest pain. HISTORY OF PRESENT ILLNESS: Mr. Webb is a 64-year-old male with past medical history of myocardial infarction, cardiac stents, hypertension, asthma, presents to the emergency room with sudden onset of chest pain. The patient took full dose of aspirin at home. Once the patient arrived to the emergency room, chest pain was resolved. The patient has a recent laminectomy. The patient was recently discharged from the hospital. Initial workup in the emergency room including initial troponin negative. EKG showed nonspecific changes. CTA of the chest was done which ruled out PE. Given the patient's presentation and risk factors, the patient is being admitted to the hospital for further management and to rule out acute coronary syndrome. PAST MEDICAL HISTORY: 1. Myocardial infarction. 2. Asthma. 3. Hypertension. PAST SURGICAL HISTORY: 1. Adenoidectomy. 2. Vasectomy. 3. Laminectomy. PAST PSYCHIATRIC HISTORY: 1. Anxiety. 2. Depression. SOCIAL HISTORY: Denies alcohol drinking. He is a former tobacco user. FAMILY HISTORY: Reviewed and noncontributory. ALLERGIES: THE PATIENT IS ALLERGIC TO TRAMADOL. HOME MEDICATIONS: Please see home medication reconciliation form for updated medications. REVIEW OF SYSTEMS: Review of 14 systems negative except what is mentioned in history of present illness. PHYSICAL EXAMINATION: GENERAL: The patient is awake, alert, does not appear to be in acute distress. VITAL SIGNS: Blood pressure 139/84, pulse is 78, respiratory rate is 18, pulse oximetry 98% on room air, temperature is 98. HEAD AND NECK: Normocephalic, atraumatic. NECK: Supple. No JVD. CHEST: Fair bilateral air entry. HEART: S1, S2 regular. ABDOMEN: Soft, nontender. Bowel sounds are present. NEUROLOGIC: Awake, alert, oriented x3. No focal deficits. PSYCHIATRIC: Normal mood. EXTREMITIES: No clubbing, no cyanosis. GENITOURINARY: No flank tenderness. No suprapubic tenderness. LABORATORY DATA: CTA of the chest was reported as negative for PE. Troponin 0.01. ASSESSMENT: A 64-year-old male with history of coronary artery disease, cardiac stent, presenting with chest pain. 1. Acute chest pain, rule out acute coronary syndrome. 2. Hypertension. 3. Hyperlipidemia. 4. Former smoker. 5. Asthma. 6. Anxiety and depression. PLAN: 1. Admit. 2. Aspirin. 3. Telemetry monitoring. 4. Serial troponins. 5. Consult the patient's clearance cutter for evaluation and further recommendations. 6. Reconcile home medications. 7. DVT prophylaxis, early ambulation. 8. Expected length of stay is one midnight if the patient is stable and further workup negative. Job ID: [id number]
[2019-08-07] MEDS ORDERED: Clopidogrel Bisulfate 75 MG TAB PO SCH (09:00)
[2019-08-07] MEDS ORDERED: Atorvastatin Calcium 40 MG TAB PO SCH (09:00)
[2019-08-07] MEDS ORDERED: Amlodipine 10 MG TAB PO SCH (09:00)
[2019-08-07] MEDS ORDERED: Aspirin 81 mg Enteric Coated Tablet PO SCH (09:00)
--- NOTE | 2019-08-07 18:41 | CON ---
DATE OF CONSULTATION: 08/06/2019 REASON FOR CONSULTATION: Chest pain. HISTORY OF PRESENT ILLNESS: Mr. Webb is a pleasant 64-year-old gentleman, who I have seen and evaluated in the past. He has a history of CAD, status post stent placement. He re-presented with atypical chest pain. He recently underwent back surgery one week ago. He has also not had a bowel movement in the last week. PAST MEDICAL HISTORY: CAD, status post stent placement, asthma, hypertension, mastectomy, and laminectomy. SOCIAL HISTORY: No current tobacco or alcohol use. MEDICATIONS: Reviewed. PHYSICAL EXAMINATION: GENERAL: Patient is a pleasant male who is in no acute distress. The patient appears their stated age. VITAL SIGNS: Blood pressure 142/77, pulse 83, and temperature 98.3. NEUROLOGIC: The patient is alert and oriented x3 with no focal neurologic deficits. HEENT: Sclerae without icterus. Mouth has moist mucous membranes with normal pallor. NECK: No JVD. Carotid upstroke brisk. No bruits bilaterally. LUNGS: Clear to auscultation with unlabored respirations. BACK: No scoliosis or kyphosis. CARDIAC: Regular rate and rhythm with normal S1 and S2. No S3 or S4 noted. No significant rubs, murmurs, thrills, or gallops noted throughout the precordium. PMI is not displaced. There is no parasternal heave. ABDOMEN: Soft, nontender, nondistended. No peritoneal signs present. No hepatosplenomegaly. No abnormal striae. EXTREMITIES: 2+ femoral and 2+ dorsalis pedis pulses. No cyanosis, clubbing, or edema. SKIN: No gross abnormalities. PERTINENT LABORATORY DATA: CK and troponin negative. Stress/rest myocardial perfusion study, negative for ischemia with LVEF 50%. IMPRESSION: 1. Atypical chest pain. 2. Coronary artery disease. 3. Status post stent placement. RECOMMENDATIONS: Mr. Webb symptoms do not appear to be anginal. His stress study was negative for ischemia. This may be related to recent back surgery and constipation. We will treat appropriately. Otherwise, we will continue secondary risk factor modification. Job ID: [id number]
--- NOTE | 2019-08-09 05:49 | STRESS ---
Acquisition Time: 2019-08-06 16:00:56 Total Exercise Time: 00:01:00 Test Indications: CHEST PAIN Medications: Protocol: LEXISCAN Max HR: 105 BPM 66% of Pred: 157 BPM Max BP: 132/076 mmHG Max Work Load: 1.0 METS RESTING ECG: NORMAL SINUS RHYTHM AT 79 BPM WITH LEFT AXIS DEVIATION AND A LEFT ANTERIOR FASCICULAR BLOCK SYMPTOMS: NONE NORMAL BP RESPONSE ECTOPY: NONE ECG STRESS: NO SIGNIFICANT CHANGES INTERPRETATION: NEGATIVE ECG/AWAIT NUCLEAR IMAGES FOR DEFINITIVE DIAGNOSIS Confirmed by SARTHAK BROOKE ELLEN ([id number]) on 08/09/2019 5:49:01 AM Referred By: MD Adiel BROWN Confirmed By:SMITH BROOKE PA-C
--- NOTE | 2019-08-13 17:33 | EKG ---
Test Reason : Blood Pressure : / mmHG Vent. Rate : 075 BPM Atrial Rate : 075 BPM P-R Int : 128 ms QRS Dur : 102 ms QT Int : 398 ms P-R-T Axes : 052 -57 009 degrees QTc Int : 444 ms Normal sinus rhythm Incomplete right bundle branch block Left anterior fascicular block Minimal voltage criteria for LVH, may be normal variant Abnormal ECG Confirmed by HARESH SIDDIQI M.D. ([id number]), editorial project manager ROHIT PETTY ([id number] on 08/13/2019 5:33:16 PM Referred By: Confirmed By:HARESH SIDDIQI M.D.
== END 2019-08-06 18:37 | disposition home or self-care (01) ==
LOC: ERS 03:27 → 2SW 06:34
PROVIDERS: ADMIT Emergency Medicine; ATTEND Emergency Medicine
DX: R07.89 Other chest pain (principal); I25.2 Old myocardial infarction; J45.909 Unspecified asthma, uncomplicated; I10 Essential (primary) hypertension; F41.9 Anxiety disorder, unspecified; F32.9 Major depressive disorder, single episode, unspecified; I25.10 Atherosclerotic heart disease of native coronary artery without angina pectoris; Z87.891 Personal history of nicotine dependence; Z79.02 Long term (current) use of antithrombotics/antiplatelets; Z79.82 Long term (current) use of aspirin; Z79.899 Other long term (current) drug therapy; Z88.5 Allergy status to narcotic agent; Z95.5 Presence of coronary angioplasty implant and graft
CPT/HCPCS: 71045; 71275; 78452; 80053; 84484 ×2; 85025; 93005; 93017; 94760; 97139; 99285; A9500; G0378 ×2; 36415; J2785; Q0162; Q9967

== ENCOUNTER 2019-09-19 09:50 | Outpatient (CLI) | payer MEDICARE | END 2019-09-19 09:51 | disposition home or self-care (01) | LOC: DTY/OP 09:50 | PROVIDERS: ATTEND Family Medicine | DX: E13.9 Other specified diabetes mellitus without complications (principal) | CPT/HCPCS: 97802 ==

== ENCOUNTER 2020-12-12 10:03 | Day surgery (SDC) | payer MEDICARE ==
[2020-12-11 08:51] VITALS: BMI 25.4
[~2020-12-12 10:03] MED LIST: Iopamidol 370 76% 100 ML VIAL ONE
[2020-12-12 11:02] LABS: #Basophils 0.1 thou/uL (0.0-0.2); #Eosinphils 0.2 thou/uL (0.0-0.7); #Lymphocytes 1.8 thou/uL (1.20-3.40); #Monocytes 0.4 thou/uL (0.11-0.59); #Neutrophils 4.7 thou/uL (1.40-6.50); %Basophils 1.2 % (0.0-1.0); %Eosinophils 3.5 % (0.0-10.0); %Lymphocytes 25.3 % (21.0-51.0); %Monocytes 5.3 % (0.0-10.0); %Neutrophils 64.8 % (42.0-75.0); Hemoglobin 14.5 g/dL (14.0-18.0); Mean Corpuscular HGB CONC 32.6 g/dL (32.0-36.0); Mean Corpuscular Hemoglobin 26.4 pg (27.0-31.0); Mean Corpuscular Volume 81.1 fL (78.0-98.0); Platelet Count 201 thou/uL (130-400); RBC Distribution Width 12.1 % (11.5-14.5); White Blood Cell (WBC) Count 7.2 thou/uL (4.8-10.8)
[2020-12-12 11:21] LABS: ALT (SGPT) 12 U/L (8-55); AST (SGOT) 11 U/L (5-34); Albumin 4.4 g/dL (3.4-4.8); Alkaline Phosphatase 134 U/L (40-110); Anion Gap 20 mmol/L (10-20); BUN (Urea Nitrogen) 14 mg/dL (8.4-25.7); Calc. Creatinine Clearance 66 mL/min (70-130); Calcium 9.7 mg/dL (7.8-10.44); Carbon Dioxide 22 mmol/L (23-31); Chloride 97 mmol/L (98-107); Globulin 3.2 g/dL (2.4-3.5); Glucose 502 mg/dL (80-115); Potassium 4.1 mmol/L (3.5-5.1); Protein, Total 7.6 g/dL (5.8-8.1); Sodium 135 mmol/L (136-145)
[2020-12-12] MEDS ORDERED: Diazepam 5 MG TAB ONE (11:51)
[2020-12-12] MEDS ORDERED: Verapamil 5 MG/2 ML VIAL ONE (12:10)
[2020-12-12] MEDS ORDERED: Heparin 10,000 UNITS/ 10 ML VIAL ONE (12:10)
[2020-12-12] MEDS ORDERED: Nitroglycerin 100MG/250ML BOT 0 ML ONE (12:10)
[2020-12-12] MEDS ORDERED: Adenosine 6 MG/2 ML VIAL ONE (12:10)
[2020-12-12] MEDS ORDERED: Midazolam HCl 2 mg/2 ml Vial ONE (12:37)
[2020-12-12] MEDS ORDERED: Fentanyl 100 MCG/2 ML VIAL ONE (12:37)
[2020-12-12] MEDS ORDERED: Lidocaine 1% (PF) 30 ML VIAL ONE (12:37)
== END 2020-12-12 17:54 | disposition home or self-care (01) ==
LOC: CCL 10:03
PROVIDERS: ATTEND Internal Medicine Cardiovascular Disease
PROC: 4A023N7 Measurement of Cardiac Sampling and Pressure, Left Heart, Percutaneous Approach (ICD-10-PCS; principal; 2020-12-12)
PROC: B2111ZZ Fluoroscopy of Multiple Coronary Arteries using Low Osmolar Contrast (ICD-10-PCS; 2020-12-12)
PROC: B41D1ZZ Fluoroscopy of Aorta and Bilateral Lower Extremity Arteries using Low Osmolar Contrast (ICD-10-PCS; 2020-12-12)
DX: I25.10 Atherosclerotic heart disease of native coronary artery without angina pectoris (principal); M79.605 Pain in left leg; I10 Essential (primary) hypertension; E78.5 Hyperlipidemia, unspecified; J45.909 Unspecified asthma, uncomplicated; K21.9 Gastro-esophageal reflux disease without esophagitis; E11.9 Type 2 diabetes mellitus without complications; E78.00 Pure hypercholesterolemia, unspecified; Z79.02 Long term (current) use of antithrombotics/antiplatelets; Z79.84 Long term (current) use of oral hypoglycemic drugs; Z79.899 Other long term (current) drug therapy; Z88.5 Allergy status to narcotic agent; Z95.5 Presence of coronary angioplasty implant and graft
CPT/HCPCS: 36246; 36415; 75716; 76942; 80053; 85025; 93458; 99152; 99153; J0153; J1644; J2001; J2250; J3010; Q9967

== ENCOUNTER 2021-08-29 11:43 | Outpatient (CLI) | payer MEDICARE ==
[2021-08-29 23:53] LABS: SARS-CoV-2 PCR by NAA Not Detected (NotDetected)
== END 2021-08-29 11:44 | disposition home or self-care (01) ==
LOC: LABBT 11:43
PROVIDERS: ATTEND Ophthalmology Retina Specialist
DX: T85.22XA Displacement of intraocular lens, initial encounter (principal); Z20.822 Contact with and (suspected) exposure to COVID-19
CPT/HCPCS: U0003; U0005

== ENCOUNTER 2021-09-03 07:33 | Day surgery (SDC) | payer MEDICARE ==
[2021-08-26 13:17] VITALS: BMI 26.6
[~2021-09-03 07:33] MED LIST changes: +EPINEPHrine 0.3 MG in Ophthalmic Irrigation Solution 500 ML IRR SCH; -Iopamidol 370 76% 100 ML VIAL ONE
[2021-09-03] MEDS ORDERED: Phenylephrine 2.5% Ophth Soln 5 ML BOT ONE (07:56)
[2021-09-03] MEDS ORDERED: Cyclopentolate 1% Opth Drop 2 ML BOT ONE (07:56)
[2021-09-03] MEDS ORDERED: Fentanyl 250 MCG/5 ML VIAL ONE (09:09)
[2021-09-03] MEDS ORDERED: Famotidine/PF 20 mg/2ml Vial ONE (09:09)
[2021-09-03] MEDS ORDERED: Ondansetron PF 4 MG/2 ML Vial ONE (09:15)
[2021-09-03] MEDS ORDERED: Lidocaine 1% PF 5 ML VIAL ONE ×2 (09:15)
[2021-09-03] MEDS ORDERED: Bupivacaine 0.75% 10 ML VIAL ONE (09:15)
[2021-09-03] MEDS ORDERED: Triamcinolone 40 MG/ML VIAL ONE (09:15)
[2021-09-03] MEDS ORDERED: ePHEDrine 50 MG/ML VIAL ONE (09:15)
[2021-09-03] MEDS ORDERED: CEFAZOLIN 1 GM VIAL ONE (09:15)
[2021-09-03] MEDS ORDERED: Metoclopramide HCl 10 MG/2 ML VIAL ONE (09:15)
[2021-09-03] MEDS ORDERED: Lidocaine 4% PF 5 ML AMP ONE (09:15)
[2021-09-03] MEDS ORDERED: PROPOFOL 200 MG/20 ML VIAL ONE (09:15)
[2021-09-03] MEDS ORDERED: Maxitrol 0.1% Opth Oint 3.5 GM TUBE ONE (09:15)
== END 2021-09-03 11:54 | disposition home or self-care (01) ==
LOC: SDC 07:33
PROVIDERS: ATTEND Ophthalmology Retina Specialist
PROC: 08DK3ZZ Extraction of Left Lens, Percutaneous Approach (ICD-10-PCS; principal; 2021-09-03)
PROC: 08T53ZZ Resection of Left Vitreous, Percutaneous Approach (ICD-10-PCS; 2021-09-03)
DX: H43.392 Other vitreous opacities, left eye (principal); Z88.5 Allergy status to narcotic agent
CPT/HCPCS: 36416; J0171; J0690; J2405; J2704; J2765; J3010; J3301; J3490; S0028

== ENCOUNTER 2022-03-06 08:51 | Outpatient (CLI) | payer MEDICARE ==
[2022-03-06 10:40] LABS: Hemoglobin 14.5 g/dL (13.5-17.5)
[2022-03-06 10:48] LABS: Anion Gap 15 mmol/L (10-20); BUN (Urea Nitrogen) 18 mg/dL (8.4-25.7); Calc. Creatinine Clearance 0 mL/min (70-130); Calcium 8.9 mg/dL (7.8-10.44); Carbon Dioxide 27 mmol/L (23-31); Chloride 103 mmol/L (98-107); Estimated GFR 81; Glucose 165 mg/dL (80-115); Potassium 3.1 mmol/L (3.5-5.1); Sodium 142 mmol/L (136-145)
== END 2022-03-06 08:52 | disposition home or self-care (01) ==
LOC: LABBT 08:51
PROVIDERS: ATTEND Student in an Organized Health Care Education/Training Program
DX: Z01.812 Encounter for preprocedural laboratory examination (principal); E04.1 Nontoxic single thyroid nodule; J34.3 Hypertrophy of nasal turbinates; J34.2 Deviated nasal septum; J33.9 Nasal polyp, unspecified; R09.81 Nasal congestion; J30.9 Allergic rhinitis, unspecified; R51.9 Headache, unspecified; J32.4 Chronic pansinusitis; J32.9 Chronic sinusitis, unspecified; R44.8 Other symptoms and signs involving general sensations and perceptions; Z20.822 Contact with and (suspected) exposure to COVID-19
CPT/HCPCS: 80048; 85014; 85018; 87811

== ENCOUNTER 2022-03-11 05:47 | Day surgery (SDC) | payer MEDICARE ==
[2022-03-07 12:21] VITALS: BMI 24.8
[2022-03-11] MEDS ORDERED: Oxymetazoline HCl 0.05% (30 ML BOT) ONE ×2 (06:35→10:48)
[2022-03-11] MEDS ORDERED: Lidocaine 1% MPF 2 ML VIAL ONE ×3 (07:37→11:14)
[2022-03-11] MEDS ORDERED: CEFAZOLIN 2 GM VIAL ONE (08:10)
[2022-03-11] MEDS ORDERED: Sodium Chloride 0.9% 100 ML ONE (08:10)
[2022-03-11] MEDS ORDERED: EPINEPHrine 1 MG/ML AMP ONE (10:48)
[2022-03-11] MEDS ORDERED: Lidocaine 1% (PF) 30 ML VIAL ONE (10:49)
[2022-03-11] MEDS ORDERED: fentaNYL Citrate/PF 100 MCG/2 ML SYRINGE ONE ×3 (10:50→14:24)
[2022-03-11] MEDS ORDERED: PROPOFOL 200 MG/20 ML VIAL ONE (11:14)
[2022-03-11] MEDS ORDERED: Dexamethasone 20 MG/5 ML VIAL ONE (11:14)
[2022-03-11] MEDS ORDERED: Rocuronium Bromide 10 MG/ML (10ML VIAL) ONE (11:14)
[2022-03-11] MEDS ORDERED: ePHEDrine 50 MG/ML VIAL ONE (11:14)
[2022-03-11] MEDS ORDERED: NEOSTIGMINE 3 MG/3 ML SYR 3 MG/3 ML SYRINGE ONE (11:14)
[2022-03-11] MEDS ORDERED: Glycopyrrolate 0.2 MG/ML 5 ML SYRINGE ONE (11:14)
[2022-03-11] MEDS ORDERED: Ondansetron PF 4 MG/2 ML Vial ONE (11:14)
[2022-03-11] MEDS ORDERED: Labetalol HCl 100 MG/20 ML VIAL ONE (11:14)
[2022-03-11] MEDS ORDERED: Ketamine 50 MG/ML (10ML VIAL) ONE (11:30)
[2022-03-11] MEDS ORDERED: Triamcinolone 40 MG/ML VIAL ONE ×2 (13:52→13:57)
== END 2022-03-11 16:44 | disposition home or self-care (01) ==
LOC: SDC 05:47
PROVIDERS: ATTEND Student in an Organized Health Care Education/Training Program
PROC: 8E09XBZ Computer Assisted Procedure of Head and Neck Region (ICD-10-PCS; principal; 2022-03-11)
PROC: 09BT8ZZ Excision of Left Frontal Sinus, Via Natural or Artificial Opening Endoscopic (ICD-10-PCS; 2022-03-11)
PROC: 09BS8ZZ Excision of Right Frontal Sinus, Via Natural or Artificial Opening Endoscopic (ICD-10-PCS; 2022-03-11)
PROC: 09BX8ZZ Excision of Left Sphenoid Sinus, Via Natural or Artificial Opening Endoscopic (ICD-10-PCS; 2022-03-11)
PROC: 09BW8ZZ Excision of Right Sphenoid Sinus, Via Natural or Artificial Opening Endoscopic (ICD-10-PCS; 2022-03-11)
PROC: 09BR8ZZ Excision of Left Maxillary Sinus, Via Natural or Artificial Opening Endoscopic (ICD-10-PCS; 2022-03-11)
PROC: 09BQ8ZZ Excision of Right Maxillary Sinus, Via Natural or Artificial Opening Endoscopic (ICD-10-PCS; 2022-03-11)
PROC: 09TV8ZZ Resection of Left Ethmoid Sinus, Via Natural or Artificial Opening Endoscopic (ICD-10-PCS; 2022-03-11)
PROC: 09TU8ZZ Resection of Right Ethmoid Sinus, Via Natural or Artificial Opening Endoscopic (ICD-10-PCS; 2022-03-11)
DX: J32.9 Chronic sinusitis, unspecified (principal); J34.2 Deviated nasal septum; J34.3 Hypertrophy of nasal turbinates; J33.8 Other polyp of sinus; J45.909 Unspecified asthma, uncomplicated; E78.5 Hyperlipidemia, unspecified; I10 Essential (primary) hypertension; G89.29 Other chronic pain; M54.9 Dorsalgia, unspecified; M81.0 Age-related osteoporosis without current pathological fracture; Z79.02 Long term (current) use of antithrombotics/antiplatelets; Z79.4 Long term (current) use of insulin; Z79.899 Other long term (current) drug therapy; Z88.5 Allergy status to narcotic agent; Z88.6 Allergy status to analgesic agent; Z96.41 Presence of insulin pump (external) (internal)
CPT/HCPCS: 31259; 31267; 31276; 61782; 82962; C2625; 36416; J0171; J0690; J1100; J2001; J2405; J2704; J3301; J3490

== ENCOUNTER 2022-08-08 06:19 | Day surgery (SDC) | payer MEDICARE ==
[2022-08-06 12:01] VITALS: BMI 23.7
[2022-08-08] MEDS ORDERED: Lidocaine 1% MPF 2 ML VIAL ONE (07:14)
[2022-08-08] MEDS ORDERED: PHENYLEPHRINE-NS 100 MCG/ML 10 ML SYRINGE ONE (08:58)
[2022-08-08] MEDS ORDERED: Lidocaine 1% PF 5 ML VIAL ONE (08:58)
[2022-08-08] MEDS ORDERED: PROPOFOL 200 MG/20 ML VIAL ONE (08:58)
[2022-08-08] MEDS ORDERED: Ipratropium/Albuterol 3 ML NEB ONE (10:57)
== END 2022-08-08 11:15 | disposition home or self-care (01) ==
LOC: SDC 06:19
PROVIDERS: ATTEND Internal Medicine Gastroenterology
PROC: 0DJ08ZZ Inspection of Upper Intestinal Tract, Via Natural or Artificial Opening Endoscopic (ICD-10-PCS; principal; 2022-08-08)
PROC: 0D757ZZ Dilation of Esophagus, Via Natural or Artificial Opening (ICD-10-PCS; 2022-08-08)
PROC: 0DBK8ZX Excision of Ascending Colon, Via Natural or Artificial Opening Endoscopic, Diagnostic (ICD-10-PCS; 2022-08-08)
PROC: 0DBN8ZX Excision of Sigmoid Colon, Via Natural or Artificial Opening Endoscopic, Diagnostic (ICD-10-PCS; 2022-08-08)
PROC: 0DBM8ZX Excision of Descending Colon, Via Natural or Artificial Opening Endoscopic, Diagnostic (ICD-10-PCS; 2022-08-08)
PROC: 3E0H8KZ Introduction of Other Diagnostic Substance into Lower GI, Via Natural or Artificial Opening Endoscopic (ICD-10-PCS; 2022-08-08)
DX: Z12.11 Encounter for screening for malignant neoplasm of colon (principal); D12.2 Benign neoplasm of ascending colon; K63.5 Polyp of colon; R13.10 Dysphagia, unspecified; K21.9 Gastro-esophageal reflux disease without esophagitis; E11.9 Type 2 diabetes mellitus without complications; Z86.010 Personal history of colon polyps; Z79.02 Long term (current) use of antithrombotics/antiplatelets; Z79.4 Long term (current) use of insulin; Z79.85 Long-term (current) use of injectable non-insulin antidiabetic drugs; Z79.899 Other long term (current) drug therapy; Z88.5 Allergy status to narcotic agent; Z88.6 Allergy status to analgesic agent; Z96.41 Presence of insulin pump (external) (internal)
CPT/HCPCS: 36416; 88305; J2704; J7620

== ENCOUNTER 2022-12-02 05:49 | Day surgery (SDC) | payer MEDICARE, OTHER ==
[2022-11-28 09:47] VITALS: BMI 24.1
[2022-12-02] MEDS ORDERED: Oxymetazoline HCl 0.05% (30 ML BOT) ONE ×2 (06:10→06:48)
[2022-12-02] MEDS ORDERED: EPINEPHrine 1 MG/ML AMP ONE ×3 (06:48→08:20)
[2022-12-02] MEDS ORDERED: Lidocaine 1% (PF) 30 ML VIAL ONE (06:48)
[2022-12-02] MEDS ORDERED: fentaNYL PF 100 MCG/2 ML SYRINGE ONE (07:01)
[2022-12-02] MEDS ORDERED: Dexmedetomidine 200 MCG/2 ML VIAL ONE (07:02)
[2022-12-02] MEDS ORDERED: Insulin Regular 300 UNITS/3 ML VIAL ONE (07:09)
[2022-12-02] MEDS ORDERED: Sodium Chloride 0.9% 100 ML ONE (07:40)
[2022-12-02] MEDS ORDERED: CEFAZOLIN 2 GM VIAL ONE (07:40)
[2022-12-02] MEDS ORDERED: EPINEPHrine 1 MG/10 ML Abboject SYRINGE ONE (07:50)
[2022-12-02] MEDS ORDERED: Albuterol HFA (OR) 200 PUFF INH ONE ×2 (07:50→07:58)
[2022-12-02] MEDS ORDERED: Lidocaine 1% PF 5 ML VIAL ONE (07:50)
[2022-12-02] MEDS ORDERED: ePHEDrine Sulfate 50 MG/10 ML VIAL ONE (07:50)
[2022-12-02] MEDS ORDERED: PHENYLEPHRINE-NS 100 MCG/ML 10 ML SYRINGE ONE (07:50)
[2022-12-02] MEDS ORDERED: PROPOFOL 200 MG/20 ML VIAL ONE (07:50)
[2022-12-02] MEDS ORDERED: Rocuronium Bromide 10 MG/ML (10ML VIAL) ONE (07:50)
[2022-12-02] MEDS ORDERED: Dextrose 50% Abboject 50 ML SYRINGE ONE (09:04)
[2022-12-02] MEDS ORDERED: SUGAMMADEX SODIUM 200 MG/2 ML VIAL ONE ×2 (10:48→11:19)
[2022-12-02] MEDS ORDERED: Bacitracin Zinc Ointment 30 gm TUBE ONE (10:50)
[2022-12-02] MEDS ORDERED: Triamcinolone 40 MG/ML VIAL ONE (11:08)
== END 2022-12-02 13:40 | disposition home or self-care (01) ==
LOC: SDC 05:49
PROVIDERS: ATTEND Student in an Organized Health Care Education/Training Program
PROC: 09BK4ZZ Excision of Nasal Mucosa and Soft Tissue, Percutaneous Endoscopic Approach (ICD-10-PCS; principal; 2022-12-02)
PROC: 09BV8ZZ Excision of Left Ethmoid Sinus, Via Natural or Artificial Opening Endoscopic (ICD-10-PCS; 2022-12-02)
PROC: 09BW8ZZ Excision of Right Sphenoid Sinus, Via Natural or Artificial Opening Endoscopic (ICD-10-PCS; 2022-12-02)
PROC: 09BX8ZZ Excision of Left Sphenoid Sinus, Via Natural or Artificial Opening Endoscopic (ICD-10-PCS; 2022-12-02)
PROC: 09BQ8ZZ Excision of Right Maxillary Sinus, Via Natural or Artificial Opening Endoscopic (ICD-10-PCS; 2022-12-02)
PROC: 09BR8ZZ Excision of Left Maxillary Sinus, Via Natural or Artificial Opening Endoscopic (ICD-10-PCS; 2022-12-02)
PROC: 09BS8ZZ Excision of Right Frontal Sinus, Via Natural or Artificial Opening Endoscopic (ICD-10-PCS; 2022-12-02)
PROC: 09BT8ZZ Excision of Left Frontal Sinus, Via Natural or Artificial Opening Endoscopic (ICD-10-PCS; 2022-12-02)
PROC: 09BU8ZZ Excision of Right Ethmoid Sinus, Via Natural or Artificial Opening Endoscopic (ICD-10-PCS; 2022-12-02)
DX: J32.4 Chronic pansinusitis (principal); J33.9 Nasal polyp, unspecified; J35.01 Chronic tonsillitis; J02.9 Acute pharyngitis, unspecified; E78.5 Hyperlipidemia, unspecified; I10 Essential (primary) hypertension; J45.909 Unspecified asthma, uncomplicated; I25.10 Atherosclerotic heart disease of native coronary artery without angina pectoris; E11.9 Type 2 diabetes mellitus without complications; K21.9 Gastro-esophageal reflux disease without esophagitis; I77.9 Disorder of arteries and arterioles, unspecified; R42 Dizziness and giddiness; M79.605 Pain in left leg; R06.02 Shortness of breath; Z87.891 Personal history of nicotine dependence; Z79.02 Long term (current) use of antithrombotics/antiplatelets; Z79.899 Other long term (current) drug therapy; Z88.8 Allergy status to other drugs, medicaments and biological substances; Z95.5 Presence of coronary angioplasty implant and graft
CPT/HCPCS: 31253; 31267; 31288; 82962; C2625; 36416; J0171; J1815; J2001; J2704; J3301; J3490; J7999

== ENCOUNTER 2023-04-22 08:43 | Outpatient (CLI) | payer MEDICARE | END 2023-04-22 08:44 | disposition home or self-care (01) | LOC: RAD 08:43 | PROVIDERS: ATTEND Internal Medicine Critical Care Medicine | DX: R06.00 Dyspnea, unspecified (principal) | CPT/HCPCS: 71046 ==

== ENCOUNTER 2023-06-06 07:51 | Inpatient (IN) | payer MEDICARE ==
[2023-06-06 08:40] LABS: Hematocrit 43.9 % (42.0-52.0); Hemoglobin 14.3 g/dL (14.0-18.0); Manual Diff?? YES; Mean Corpuscular HGB CONC 32.6 g/dL (32.0-36.0); Mean Corpuscular Hemoglobin 25.7 pg (27.0-31.0); Mean Corpuscular Volume 78.8 fl (78.0-98.0); Platelet Count 209 10x3/uL (130-400); RBC Distribution Width 15.7 % (11.5-14.5); Red Blood Cell (RBC) Count 5.57 mill/uL (4.70-6.10); White Blood Cell (WBC) Count 10.9 10x3/uL (4.8-10.8)
[2023-06-06] MEDS ORDERED: Acetaminophen 325 MG TAB ONE (08:43)
[2023-06-06] MEDS ORDERED: methylPREDNISolone Sod Succ 40 MG VIAL ONE (08:43)
[2023-06-06] MEDS ORDERED: LevoFLOXacin 750 mg/D5W 150 ml Premix Bag ONE (08:43)
[2023-06-06 08:44] LABS: Delete Auto Diff?? YES
[2023-06-06 08:55] LABS: Prothrombin Time 13.8 sec (12.0-14.7)
[2023-06-06 08:56] LABS: PTT 31.3 sec (22.9-36.1)
[2023-06-06 09:01] LABS: ALT (SGPT) 24 U/L (8-55); AST (SGOT) 27 U/L (5-34); Albumin 3.9 g/dL (3.4-4.8); Alkaline Phosphatase 152 U/L (40-110); Anion Gap 15 mmol/L (10-20); BUN (Urea Nitrogen) 17 mg/dL (8.4-25.7); Bilirubin, Total 0.8 mg/dL (0.2-1.2); Calc. Creatinine Clearance 0 mL/min (70-130); Calcium 9.5 mg/dL (7.8-10.44); Carbon Dioxide 27 mmol/L (23-31); Chloride 102 mmol/L (98-107); Estimated GFR 68; Globulin 3.8 g/dL (2.4-3.5); Glucose 141 mg/dL (80-115); Lipase 40 U/L (8-78); Potassium 3.7 mmol/L (3.5-5.1); Protein, Total 7.7 g/dL (5.8-8.1); Sodium 140 mmol/L (136-145)
[2023-06-06 09:05] LABS: Burr Cells SLIGHT = 2-5 cells HPF (0-1); CellaVision Operator ID LAB.NR; Eosinophils 36 % (0-10); Lymphocytes 11 % (21-51); Monocytes 5 % (0-10); Neutrophil 48 % (42-75); Platelet Adequacy Comment Platelets Normal; Polychromasia SLIGHT = 2-3 cells HPF (0-2); Smudge Cells 12.9 %; Total Cell Count 101
[2023-06-06 09:06] LABS: Troponin I Less than 0.010 ng/mL (< 0.028)
[2023-06-06] MEDS ORDERED: Albuterol 2.5 MG/0.5 ML NEB ONE (09:24)
[2023-06-06] MEDS ORDERED: Ipratropium Bromide 2.5 ml Neb ONE (09:24)
[2023-06-06 09:40] LABS: Actual Bicarbonate (HCO3v) 26.5 mEq/L (22-28); Base Excess 1.8 mEq/L (-2.0 to +3.0); Calcium, Ionized (venous) 1.09 mmol/L (1.16-1.32); Chloride (VBG) 104 mmol/L (98-106); Hematocrit-VBG 42 % (42.0-52.0); Hemoglobin (Hb) 14.4 g/dL (12.6-17.4); Potassium (VBG) 3.59 mmol/L (3.70-5.30); Sodium 140 mmol/L (133-146); pH (venous) 7.421 (7.32-7.43)
[2023-06-06 12:34] LABS: Bacteria/HPF None Seen HPF (None Seen); Bilirubin Negative (Negative); Blood, Urine Negative (Negative); CAUTI Indications for Culture Pelvic or flank pain; Clarity Clear (Clear); Glucose, Urine (Dipstick) Normal (Negative); Ketone, Urine Trace mg/dL (Negative); Leukocyte Negative Leu/uL (Negative); Nitrite Negative (Negative); Protein, Urine (Dipstick) Negative (Neg-Trace); RBC/HPF 0-3 HPF (0-3); Squamous Epithelial 0-3 HPF (0-3); Urobilinogen Normal mg/dL (Less than 2); WBC/HPF 0-3 HPF (0-3); pH, Urine 5.5 (5.0-9.0)
[2023-06-06 12:35] LABS: Specific Gravity, Urine 1.055 (1.002-1.036)
[2023-06-06 12:36] LABS: Urine Culture Reflex No No
[2023-06-06 13:37] VITALS: BMI 24.1
[2023-06-06] MEDS ORDERED: Iopamidol-370 76% 500 ML MDV (1 ML CHARGE) ONE (14:26)
[2023-06-06] MEDS ORDERED: Dextrose 5% in Water 1,000 ML IV PRN (16:58)
[2023-06-06] MEDS ORDERED: Dextrose 50% Abboject 50 ML SYRINGE SLOW IVP PRN (16:58)
[2023-06-06] MEDS ORDERED: Glucagon 1 MG/ML KIT IM PRN (16:58)
[2023-06-06] MEDS: HumaLOG 300 UNITS/3 ML VIAL SC PRN ×2 (17:14→20:22)
[2023-06-06] MEDS ORDERED: Benzonatate 100 MG CAP PO SCH (20:00)
[2023-06-06] MEDS ORDERED: GUAIFENESIN SF SOLN 200 MG/10 ML UDCUP PO SCH (20:15)
[2023-06-06] MEDS: ALPRAZolam 0.25 MG TAB PO PRN (20:22)
[2023-06-06] MEDS: guaiFENesin ER 600 MG TAB PO SCH (20:22)
[2023-06-07] MEDS: Amlodipine 10 MG TAB PO SCH (07:55)
[2023-06-07] MEDS: Hydrochlorothiazide 25 MG TAB PO SCH (07:55)
[2023-06-07] MEDS: Clopidogrel Bisulfate 75 MG TAB PO SCH (07:55)
[2023-06-07] MEDS: guaiFENesin ER 600 MG TAB PO SCH ×2 (07:55→20:24)
[2023-06-07] MEDS: Atorvastatin Calcium 40 MG TAB PO SCH (07:55)
[2023-06-07] MEDS: Sertraline 25 MG TAB PO SCH (07:55)
[2023-06-07] MEDS: Aspirin 81 mg Enteric Coated Tablet PO SCH ×2 (07:56→07:58)
[2023-06-07] MEDS: Montelukast Sodium 10 mg Tablet PO SCH (07:56)
[2023-06-07] MEDS: ALPRAZolam 0.25 MG TAB PO PRN ×2 (08:01→22:09)
[2023-06-07] MEDS ORDERED: Ipratropium/Albuterol 3 ML NEB NEB PRN (08:25)
[2023-06-07] MEDS: LevoFLOXacin 750 mg/D5W 750 MG in Premix 1 BAG IVPB SCH (08:55)
[2023-06-07] MEDS: HYDROcodone/Acetaminophen 5/325 mg Tablet PO PRN ×3 (08:55→22:09)
[2023-06-07] MEDS: Guaifenesin DM 100-10/5 ML UDCUP PO PRN ×3 (11:18→22:09)
[2023-06-07] MEDS: methylPREDNISolone Sod Succ 40 MG VIAL IVP SCH ×2 (11:18→17:24)
[2023-06-07] MEDS: Ipratropium/Albuterol 3 ML NEB NEB SCH ×2 (12:10→19:43)
[2023-06-07] MEDS: HumaLOG 300 UNITS/3 ML VIAL SC PRN ×2 (16:03→22:20)
[2023-06-07] MEDS ORDERED: Acetaminophen 325 MG TAB PO PRN (17:35)
[2023-06-07] MEDS ORDERED: Bisacodyl 5 MG TAB PO PRN (17:35)
[2023-06-07] MEDS ORDERED: HumaLOG 300 UNITS/3 ML VIAL SC PRN (17:38)
[2023-06-08] MEDS: methylPREDNISolone Sod Succ 40 MG VIAL IVP SCH ×4 (00:27→17:28)
[2023-06-08] MEDS: Ipratropium/Albuterol 3 ML NEB NEB SCH ×4 (01:25→18:56)
[2023-06-08] MEDS: HumaLOG 300 UNITS/3 ML VIAL SC PRN ×4 (06:15→20:44)
[2023-06-08] MEDS: HYDROcodone/Acetaminophen 5/325 mg Tablet PO PRN ×2 (06:26→22:34)
[2023-06-08] MEDS: Guaifenesin DM 100-10/5 ML UDCUP PO PRN (06:26)
[2023-06-08 07:17] LABS: #Monocytes 0.1 thou/uL (0.11-0.59); %Lymphocytes 8.5 % (21.0-51.0); %Monocytes 1.6 % (0.0-10.0); %Neutrophils 89.6 % (42.0-75.0); Hematocrit 42.3 % (42.0-52.0); Hemoglobin 13.6 g/dL (14.0-18.0); Mean Corpuscular HGB CONC 32.2 g/dL (32.0-36.0); Mean Corpuscular Hemoglobin 25.2 pg (27.0-31.0); Mean Corpuscular Volume 78.3 fl (78.0-98.0); Mean Platelet Volume 11.1 fL (7.4-10.4); Platelet Count 174 10x3/uL (130-400); RBC Distribution Width 15.5 % (11.5-14.5); White Blood Cell (WBC) Count 6.7 10x3/uL (4.8-10.8)
[2023-06-08 07:40] LABS: Anion Gap 16 mmol/L (10-20); BUN (Urea Nitrogen) 16 mg/dL (8.4-25.7); Calc. Creatinine Clearance 58 mL/min (70-130); Carbon Dioxide 24 mmol/L (23-31); Chloride 100 mmol/L (98-107); Estimated GFR 54; Potassium 4.3 mmol/L (3.5-5.1); Sodium 136 mmol/L (136-145)
[2023-06-08 07:47] LABS: Glucose 461 mg/dL (80-115)
[2023-06-08] MEDS: Aspirin 81 mg Enteric Coated Tablet PO SCH (08:38)
[2023-06-08] MEDS: Montelukast Sodium 10 mg Tablet PO SCH (08:48)
[2023-06-08] MEDS: Hydrochlorothiazide 25 MG TAB PO SCH (08:48)
[2023-06-08] MEDS: ALPRAZolam 0.25 MG TAB PO PRN ×2 (08:48→22:34)
[2023-06-08] MEDS: guaiFENesin ER 600 MG TAB PO SCH ×2 (08:48→20:44)
[2023-06-08] MEDS: Atorvastatin Calcium 40 MG TAB PO SCH (08:48)
[2023-06-08] MEDS: Sertraline 25 MG TAB PO SCH (08:48)
[2023-06-08] MEDS: Amlodipine 10 MG TAB PO SCH (08:48)
[2023-06-08] MEDS: Clopidogrel Bisulfate 75 MG TAB PO SCH (08:48)
[2023-06-08] MEDS: LevoFLOXacin 750 mg/D5W 750 MG in Premix 1 BAG IVPB SCH (08:49)
[2023-06-08] MEDS: GUAIFENESIN DM SF 5 ML UDCUP PO PRN ×2 (12:12→20:43)
[2023-06-08] MEDS ORDERED: Insulin Glargine 30 UNITS/0.3 ML VIAL SC SCH (21:00)
[2023-06-09] MEDS: methylPREDNISolone Sod Succ 40 MG VIAL IVP SCH ×4 (00:45→18:23)
[2023-06-09] MEDS: Ipratropium/Albuterol 3 ML NEB NEB SCH ×4 (01:31→18:29)
[2023-06-09] MEDS: HumaLOG 300 UNITS/3 ML VIAL SC PRN ×2 (05:54→13:13)
[2023-06-09] MEDS: GUAIFENESIN DM SF 5 ML UDCUP PO PRN (05:55)
[2023-06-09 08:13] LABS: #Monocytes 0.3 thou/uL (0.11-0.59); #Neutrophils 11.1 thou/uL (1.40-6.50); %Basophils 0.1 % (0.0-1.0); %Lymphocytes 4.4 % (21.0-51.0); %Monocytes 2.2 % (0.0-10.0); %Neutrophils 92.8 % (42.0-75.0); Hematocrit 41.9 % (42.0-52.0); Hemoglobin 13.6 g/dL (14.0-18.0); Mean Corpuscular HGB CONC 32.5 g/dL (32.0-36.0); Mean Corpuscular Hemoglobin 25.3 pg (27.0-31.0); Mean Platelet Volume 12.1 fL (7.4-10.4); Platelet Count 171 10x3/uL (130-400); RBC Distribution Width 15.4 % (11.5-14.5); Red Blood Cell (RBC) Count 5.37 mill/uL (4.70-6.10)
[2023-06-09] MEDS ORDERED: GUAIFENESIN SF SOLN 200 MG/10 ML UDCUP PO PRN (08:21)
[2023-06-09] MEDS ORDERED: guaiFENesin/Codeine 200 mg/20 mg 10 ml Cup PO SCH (08:30)
[2023-06-09 08:32] LABS: Anion Gap 10 mmol/L (10-20); BUN (Urea Nitrogen) 20 mg/dL (8.4-25.7); Calc. Creatinine Clearance 65 mL/min (70-130); Calcium 9.3 mg/dL (7.8-10.44); Carbon Dioxide 32 mmol/L (23-31); Chloride 99 mmol/L (98-107); Estimated GFR 63; Sodium 137 mmol/L (136-145)
[2023-06-09 08:41] LABS: Glucose 421 mg/dL (80-115)
[2023-06-09] MEDS ORDERED: Insulin Glargine 30 UNITS/0.3 ML VIAL SC SCH ×2 (09:00→21:00)
[2023-06-09] MEDS: Sertraline 25 MG TAB PO SCH (09:06)
[2023-06-09] MEDS: Montelukast Sodium 10 mg Tablet PO SCH (09:06)
[2023-06-09] MEDS: Amlodipine 10 MG TAB PO SCH (09:06)
[2023-06-09] MEDS: Hydrochlorothiazide 25 MG TAB PO SCH (09:06)
[2023-06-09] MEDS: ALPRAZolam 0.25 MG TAB PO PRN ×2 (09:06→21:09)
[2023-06-09] MEDS: Atorvastatin Calcium 40 MG TAB PO SCH (09:06)
[2023-06-09] MEDS: Clopidogrel Bisulfate 75 MG TAB PO SCH (09:07)
[2023-06-09] MEDS: guaiFENesin ER 600 MG TAB PO SCH ×2 (09:07→21:09)
[2023-06-09] MEDS: Aspirin 81 mg Enteric Coated Tablet PO SCH (09:07)
[2023-06-09] MEDS: LevoFLOXacin 750 mg/D5W 750 MG in Premix 1 BAG IVPB SCH (09:08)
[2023-06-09] MEDS ORDERED: Ondansetron PF 4 MG/2 ML Vial IVP PRN (14:01)
[2023-06-09] MEDS: HYDROcodone/Acetaminophen 5/325 mg Tablet PO PRN (14:24)
[2023-06-10] MEDS: methylPREDNISolone Sod Succ 40 MG VIAL IVP SCH ×5 (00:10→23:43)
[2023-06-10] MEDS: Ipratropium/Albuterol 3 ML NEB NEB SCH ×5 (01:54→23:26)
[2023-06-10] MEDS: HumaLOG 300 UNITS/3 ML VIAL SC PRN ×4 (05:23→21:01)
[2023-06-10 07:06] LABS: #Monocytes 0.2 thou/uL (0.11-0.59); #Neutrophils 9.8 thou/uL (1.40-6.50); %Basophils 0.1 % (0.0-1.0); %Lymphocytes 4.1 % (21.0-51.0); %Monocytes 2.3 % (0.0-10.0); %Neutrophils 93.2 % (42.0-75.0); Hematocrit 42.4 % (42.0-52.0); Hemoglobin 13.6 g/dL (14.0-18.0); Mean Corpuscular HGB CONC 32.1 g/dL (32.0-36.0); Mean Corpuscular Hemoglobin 24.8 pg (27.0-31.0); Mean Corpuscular Volume 77.4 fl (78.0-98.0); Mean Platelet Volume 11.9 fL (7.4-10.4); Platelet Count 172 10x3/uL (130-400); RBC Distribution Width 15.3 % (11.5-14.5); Red Blood Cell (RBC) Count 5.48 mill/uL (4.70-6.10); White Blood Cell (WBC) Count 10.5 10x3/uL (4.8-10.8)
[2023-06-10 07:25] LABS: Anion Gap 13 mmol/L (10-20); BUN (Urea Nitrogen) 24 mg/dL (8.4-25.7); Calc. Creatinine Clearance 56 mL/min (70-130); Calcium 9.1 mg/dL (7.8-10.44); Carbon Dioxide 30 mmol/L (23-31); Chloride 96 mmol/L (98-107); Estimated GFR 52; Sodium 135 mmol/L (136-145)
[2023-06-10 07:35] LABS: Glucose 525 mg/dL (80-115)
[2023-06-10] MEDS: Insulin Glargine 30 UNITS/0.3 ML VIAL SC SCH ×2 (08:22→21:01)
[2023-06-10] MEDS: Amlodipine 10 MG TAB PO SCH (08:23)
[2023-06-10] MEDS: Montelukast Sodium 10 mg Tablet PO SCH (08:23)
[2023-06-10] MEDS: Hydrochlorothiazide 25 MG TAB PO SCH (08:23)
[2023-06-10] MEDS: Clopidogrel Bisulfate 75 MG TAB PO SCH (08:23)
[2023-06-10] MEDS: Sertraline 25 MG TAB PO SCH (08:24)
[2023-06-10] MEDS: guaiFENesin ER 600 MG TAB PO SCH ×2 (08:24→21:00)
[2023-06-10] MEDS: Atorvastatin Calcium 40 MG TAB PO SCH (08:24)
[2023-06-10] MEDS: Aspirin 81 mg Enteric Coated Tablet PO SCH (08:24)
[2023-06-10] MEDS: LevoFLOXacin 750 mg/D5W 750 MG in Premix 1 BAG IVPB SCH (08:25)
[2023-06-10] MEDS: HYDROcodone/Acetaminophen 5/325 mg Tablet PO PRN ×2 (08:32→20:58)
[2023-06-10] MEDS: ALPRAZolam 0.25 MG TAB PO PRN (20:58)
[2023-06-11 05:31] LABS: #Monocytes 0.3 thou/uL (0.11-0.59); #Neutrophils 8.6 thou/uL (1.40-6.50); %Lymphocytes 3.9 % (21.0-51.0); %Monocytes 3.3 % (0.0-10.0); %Neutrophils 92.4 % (42.0-75.0); Hematocrit 41.3 % (42.0-52.0); Hemoglobin 13.6 g/dL (14.0-18.0); Mean Corpuscular HGB CONC 32.9 g/dL (32.0-36.0); Mean Corpuscular Hemoglobin 25.4 pg (27.0-31.0); Mean Corpuscular Volume 77.1 fl (78.0-98.0); Mean Platelet Volume 12.4 fL (7.4-10.4); Platelet Count 166 10x3/uL (130-400); Red Blood Cell (RBC) Count 5.36 mill/uL (4.70-6.10); White Blood Cell (WBC) Count 9.3 10x3/uL (4.8-10.8)
[2023-06-11 05:44] LABS: Glucose 604 mg/dL (80-115)
[2023-06-11 05:50] LABS: Anion Gap 14 mmol/L (10-20); BUN (Urea Nitrogen) 23 mg/dL (8.4-25.7); Calc. Creatinine Clearance 64 mL/min (70-130); Carbon Dioxide 31 mmol/L (23-31); Chloride 92 mmol/L (98-107); Estimated GFR 61; Sodium 133 mmol/L (136-145)
[2023-06-11] MEDS: HumaLOG 300 UNITS/3 ML VIAL SC PRN ×4 (05:56→20:49)
[2023-06-11] MEDS: methylPREDNISolone Sod Succ 40 MG VIAL IVP SCH ×2 (05:57→11:06)
[2023-06-11 05:58] LABS: Glucose 600 mg/dL (80-115)
[2023-06-11] MEDS: Ipratropium/Albuterol 3 ML NEB NEB SCH ×3 (06:45→19:02)
[2023-06-11] MEDS: LevoFLOXacin 750 mg/D5W 750 MG in Premix 1 BAG IVPB SCH (08:05)
[2023-06-11] MEDS: Insulin Glargine 30 UNITS/0.3 ML VIAL SC SCH ×2 (08:06→20:50)
[2023-06-11] MEDS: Hydrochlorothiazide 25 MG TAB PO SCH (08:06)
[2023-06-11] MEDS: Montelukast Sodium 10 mg Tablet PO SCH (08:06)
[2023-06-11] MEDS: Sertraline 25 MG TAB PO SCH (08:07)
[2023-06-11] MEDS: Amlodipine 10 MG TAB PO SCH (08:07)
[2023-06-11] MEDS: Aspirin 81 mg Enteric Coated Tablet PO SCH ×2 (08:07→08:09)
[2023-06-11] MEDS: guaiFENesin ER 600 MG TAB PO SCH ×2 (08:07→20:49)
[2023-06-11] MEDS: Atorvastatin Calcium 40 MG TAB PO SCH (08:07)
[2023-06-11] MEDS: Clopidogrel Bisulfate 75 MG TAB PO SCH (08:07)
[2023-06-11] MEDS: HYDROcodone/Acetaminophen 5/325 mg Tablet PO PRN ×2 (08:10→20:54)
[2023-06-11] MEDS: ALPRAZolam 0.25 MG TAB PO PRN ×2 (08:12→20:54)
[2023-06-11] MEDS ORDERED: Insulin Glargine 30 UNITS/0.3 ML VIAL SC SCH (13:00)
[2023-06-11] MEDS ORDERED: Aluminum & Magnesium Hydroxide 60 ML, Lidocaine 2% Viscous Solution 30 ML, diphenhydrAM... SSW PRN (20:50)
[2023-06-12] MEDS: Ipratropium/Albuterol 3 ML NEB NEB SCH ×3 (00:45→12:25)
[2023-06-12] MEDS: HumaLOG 300 UNITS/3 ML VIAL SC PRN ×2 (04:55→12:32)
[2023-06-12 05:50] LABS: #Eosinphils 0.1 thou/uL (0.0-0.7); #Monocytes 0.6 thou/uL (0.11-0.59); #Neutrophils 6.9 thou/uL (1.40-6.50); %Eosinophils 0.5 % (0.0-10.0); %Lymphocytes 20.6 % (21.0-51.0); %Monocytes 6.7 % (0.0-10.0); %Neutrophils 71.9 % (42.0-75.0); Hematocrit 41.9 % (42.0-52.0); Hemoglobin 13.6 g/dL (14.0-18.0); Mean Corpuscular HGB CONC 32.5 g/dL (32.0-36.0); Mean Corpuscular Volume 76.9 fl (78.0-98.0); Platelet Count 168 10x3/uL (130-400); Red Blood Cell (RBC) Count 5.45 mill/uL (4.70-6.10); White Blood Cell (WBC) Count 9.6 10x3/uL (4.8-10.8)
[2023-06-12 06:33] LABS: Anion Gap 12 mmol/L (10-20); BUN (Urea Nitrogen) 21 mg/dL (8.4-25.7); Calc. Creatinine Clearance 75 mL/min (70-130); Calcium 8.9 mg/dL (7.8-10.44); Carbon Dioxide 34 mmol/L (23-31); Chloride 94 mmol/L (98-107); Estimated GFR 74; Potassium 2.9 mmol/L (3.5-5.1); Sodium 137 mmol/L (136-145)
[2023-06-12 06:36] LABS: Glucose 450 mg/dL (80-115)
[2023-06-12] MEDS ORDERED: predniSONE 20 MG TAB PO SCH (08:00)
[2023-06-12] MEDS: Potassium Chloride 20 MEQ TAB PO SCH ×3 (09:11→12:32)
[2023-06-12] MEDS: ALPRAZolam 0.25 MG TAB PO PRN (09:11)
[2023-06-12] MEDS: HYDROcodone/Acetaminophen 5/325 mg Tablet PO PRN (09:11)
[2023-06-12] MEDS: guaiFENesin ER 600 MG TAB PO SCH (09:12)
[2023-06-12] MEDS: Montelukast Sodium 10 mg Tablet PO SCH (09:12)
[2023-06-12] MEDS: Hydrochlorothiazide 25 MG TAB PO SCH (09:12)
[2023-06-12] MEDS: Sertraline 25 MG TAB PO SCH (09:12)
[2023-06-12] MEDS: Clopidogrel Bisulfate 75 MG TAB PO SCH (09:13)
[2023-06-12] MEDS: Atorvastatin Calcium 40 MG TAB PO SCH (09:13)
[2023-06-12] MEDS: LevoFLOXacin 750 mg/D5W 750 MG in Premix 1 BAG IVPB SCH (09:13)
[2023-06-12] MEDS: Insulin Glargine 30 UNITS/0.3 ML VIAL SC SCH (09:13)
[2023-06-12] MEDS: Aspirin 81 mg Enteric Coated Tablet PO SCH (09:15)
[2023-06-12] MEDS: Amlodipine 10 MG TAB PO SCH (09:15)
[2023-06-12 12:02] VITALS: BP 128/74; TEMP 97.6
== END 2023-06-12 12:57 | disposition home or self-care (01) | DRG 189 ==
LOC: ERS 07:51 → T4-B 11:08 → OBSVTOIN 06-08 10:34
PROVIDERS: ADMIT Internal Medicine; ATTEND Internal Medicine
DX: J96.21 Acute and chronic respiratory failure with hypoxia (principal); J44.1 Chronic obstructive pulmonary disease with (acute) exacerbation; N17.9 Acute kidney failure, unspecified; I25.10 Atherosclerotic heart disease of native coronary artery without angina pectoris; F41.9 Anxiety disorder, unspecified; E78.5 Hyperlipidemia, unspecified; F32.A Depression, unspecified; N50.3 Cyst of epididymis; I12.9 Hypertensive chronic kidney disease with stage 1 through stage 4 chronic kidney disease, or unspecified chronic kidney disease; E11.65 Type 2 diabetes mellitus with hyperglycemia; E87.6 Hypokalemia; N18.2 Chronic kidney disease, stage 2 (mild); E11.22 Type 2 diabetes mellitus with diabetic chronic kidney disease; Z88.8 Allergy status to other drugs, medicaments and biological substances; Z79.899 Other long term (current) drug therapy; Z79.4 Long term (current) use of insulin; Z79.82 Long term (current) use of aspirin; Z95.5 Presence of coronary angioplasty implant and graft; Z99.81 Dependence on supplemental oxygen; Z98.890 Other specified postprocedural states; Z87.891 Personal history of nicotine dependence
CPT/HCPCS: 36415; 36416; 71045; 71275; 74177; 76870; 80048; 80053; 81001; 82805; 83605; 83690; 83880; 84484; 85025; 85610; 85730; 87040; 87086; 93005; 93976; 94640; 94760; 96365; 96375; J1650; J1815; J1956; J2405; J2920; J7512; J7611; J7620; Q0163; Q9967

== ENCOUNTER 2023-06-15 15:00 | Outpatient (CLI) | payer MEDICARE | END 2023-06-15 15:01 | disposition home or self-care (01) | LOC: ULT 15:00 | PROVIDERS: ATTEND Family Medicine | DX: R60.9 Edema, unspecified (principal) | CPT/HCPCS: 76536 ==

== ENCOUNTER 2023-12-07 20:54 | Inpatient (IN) | payer MEDICARE, OTHER ==
[2023-12-07] MEDS ORDERED: Acetaminophen 325 MG TAB PO PRN (22:28)
[2023-12-07] MEDS ORDERED: Acetaminophen 650 MG Suppository PR PRN (22:28)
[2023-12-07] MEDS ORDERED: Ondansetron PF 4 MG/2 ML Vial IVP PRN (22:28)
[2023-12-07] MEDS ORDERED: Ondansetron ODT 4 MG TAB PO PRN (22:28)
[2023-12-07] MEDS ORDERED: Glucagon 1 MG/ML KIT IM PRN (22:58)
[2023-12-07] MEDS ORDERED: Dextrose 50% Abboject 50 ML SYRINGE SLOW IVP PRN (22:58)
[2023-12-07] MEDS ORDERED: HumaLOG 300 UNITS/3 ML VIAL SC PRN (22:58)
[2023-12-07] MEDS ORDERED: Dextrose 5% in Water 1,000 ML IV PRN (22:58)
[2023-12-08] MEDS: cefTRIAXone\\ROCEPHIN 1 GM in Sodium Chloride 0.9% 100 ML IVPB SCH (00:16)
[2023-12-08] MEDS: Insulin Glargine 30 UNITS/0.3 ML VIAL SC SCH ×2 (00:56→08:46)
[2023-12-08] MEDS: HumaLOG 300 UNITS/3 ML VIAL SC PRN ×2 (00:57→17:18)
[2023-12-08] MEDS: Ipratropium/Albuterol 3 ML NEB NEB SCH (02:52)
[2023-12-08 04:30] LABS: #Basophils Less than 0.03 10x3/uL (0.0-0.2); #Eosinphils Less than 0.03 10x3/uL (0.0-0.7); %Basophils 0.1 % (0.0-1.0); %Lymphocytes 8.7 % (21.0-51.0); %Monocytes 1.5 % (0.0-10.0); %Neutrophils 89.2 % (42.0-75.0); Hematocrit 44.2 % (42.0-52.0); Hemoglobin 14.2 g/dL (14.0-18.0); Mean Corpuscular HGB CONC 32.1 g/dL (32.0-36.0); Mean Corpuscular Hemoglobin 24.3 pg (27.0-31.0); Mean Corpuscular Volume 75.7 fL (78.0-98.0); Mean Platelet Volume 11.4 fL (7.4-10.4); Platelet Count 224 10x3/uL (130-400); RBC Distribution Width 14.6 % (11.5-14.5); Red Blood Cell (RBC) Count 5.84 mill/uL (4.70-6.10)
[2023-12-08 04:47] LABS: Anion Gap 18 mmol/L (10-20); BUN (Urea Nitrogen) 16 mg/dL (8.4-25.7); Calc. Creatinine Clearance 0 mL/min (70-130); Calcium 9.4 mg/dL (7.8-10.44); Carbon Dioxide 19 mmol/L (23-31); Chloride 102 mmol/L (98-107); Estimated GFR 61; Glucose 411 mg/dL (80-115); Potassium 4.2 mmol/L (3.5-5.1); Sodium 135 mmol/L (136-145)
[2023-12-08 05:36] VITALS: BMI 25.7
[2023-12-08] MEDS: Atorvastatin Calcium 40 MG TAB PO SCH (08:47)
[2023-12-08] MEDS: methylPREDNISolone Sod Succ 40 MG VIAL IVP SCH ×2 (08:47→12:40)
[2023-12-08] MEDS: DULoxetine 60 MG CAP PO SCH (08:47)
[2023-12-08] MEDS: Enoxaparin 40 MG (0.4 mL) SYRINGE SC SCH (08:47)
[2023-12-08] MEDS: Clopidogrel Bisulfate 75 MG TAB PO SCH (08:47)
[2023-12-08] MEDS: Carvedilol 3.125 MG TAB PO SCH (08:47)
[2023-12-08] MEDS: Amlodipine 10 MG TAB PO SCH (08:47)
[2023-12-08] MEDS ORDERED: [UNRECOGNIZED DRUG - OTHER] SQ SCH (09:00)
[2023-12-08] MEDS ORDERED: Non-Formulary Item 1 EACH (Fluticasone/Umeclidin/Vilanter [Trelegy Ellipta 100-62.5-25] 1 IH SCH (09:00)
[2023-12-08] MEDS ORDERED: Non-Formulary Item 1 EACH (Lansoprazole [Lansoprazole] 30 MG Capsule.Dr) PO SCH (09:00)
[2023-12-08] MEDS ORDERED: INSULIN ASPART 100 UNIT SQ SCH (09:00)
[2023-12-08] MEDS ORDERED: TADALAFIL 20 MG PO SCH (09:00)
[2023-12-08 09:26] LABS: Hemoglobin A1c 7.9 % (4.0-6.0)
[2023-12-08] MEDS: busPIRone HCl 5 MG TAB PO SCH (09:39)
[2023-12-08] MEDS: Pantoprazole DR 40 MG TAB PO SCH (09:39)
[2023-12-08] MEDS: Sertraline 25 MG TAB PO SCH (09:39)
[2023-12-08] MEDS: Potassium Citrate 10 MEQ TAB PO SCH (09:39)
[2023-12-08] MEDS: Insulin NPH Human Isophane 100 UNITS/ML (10 ML VIAL) SC SCH (12:39)
[2023-12-08] MEDS ORDERED: Ipratropium/Albuterol 3 ML NEB NEB SCH (13:00)
[2023-12-08] MEDS: Ipratropium/Albuterol 3 ML NEB NEB PRN ×2 (14:15→18:10)
[2023-12-08] MEDS: HYDROcodone/Acetaminophen 10/325 mg Tablet PO PRN (17:44)
[2023-12-08] MEDS: Mometasone 100 MCG HFA INHALER (RT USE) INH SCH (18:17)
[2023-12-09] MEDS: Benzonatate 100 MG CAP PO PRN (01:02)
[2023-12-09 04:21] LABS: #Basophils Less than 0.03 10x3/uL (0.0-0.2); #Eosinphils Less than 0.03 10x3/uL (0.0-0.7); %Basophils 0.1 % (0.0-1.0); %Monocytes 2.4 % (0.0-10.0); %Neutrophils 92.1 % (42.0-75.0); Hemoglobin 13.6 g/dL (14.0-18.0); Mean Corpuscular HGB CONC 32.4 g/dL (32.0-36.0); Mean Corpuscular Volume 77.3 fL (78.0-98.0); Mean Platelet Volume 11.7 fL (7.4-10.4); Platelet Count 224 10x3/uL (130-400); RBC Distribution Width 14.7 % (11.5-14.5); Red Blood Cell (RBC) Count 5.43 mill/uL (4.70-6.10)
[2023-12-09 05:01] LABS: Anion Gap 15 mmol/L (10-20); BUN (Urea Nitrogen) 19 mg/dL (8.4-25.7); Calc. Creatinine Clearance 75 mL/min (70-130); Calcium 9.1 mg/dL (7.8-10.44); Carbon Dioxide 22 mmol/L (23-31); Chloride 101 mmol/L (98-107); Estimated GFR 69; Glucose 408 mg/dL (80-115); Potassium 4.2 mmol/L (3.5-5.1); Sodium 134 mmol/L (136-145)
[2023-12-09] MEDS: Azithromycin 250 MG TAB PO SCH (08:13)
[2023-12-09] MEDS: methylPREDNISolone Sod Succ 40 MG VIAL IVP SCH ×2 (09:22→14:13)
[2023-12-09] MEDS ORDERED: Albuterol 200 PUFF (6.7GM INHALER) INH PRN (11:20)
[2023-12-09] MEDS: Albuterol 200 PUFF (6.7GM INHALER) INH SCH (11:53)
[2023-12-09 15:45] LABS: Actual Bicarbonate (HCO3a) 28.7 mEq/L (22-28); Base Excess (BEa) 2.4 mEq/L (-2.0 to +3.0); CO2 Tension 51.2 mmHg (35.0-45.0); Calcium, Ionized (arterial) 1.17 mmol/L (1.12-1.30); Carboxyhemoglobin (COHb) 0.5 gm% (0.0-3.0); Hematocrit-ABG 44 % (42.0-52.0); Hemoglobin (Hb) 14.8 g/dL (14.0-18.0); Potassium - ABG Lab 4.21 mmol/L (3.70-5.30); pH, Arterial 7.367 (7.35-7.45)
[2023-12-09 15:49] LABS: O2 Tension (PaO2), arterial 34.8 mmHg (> 80.0)
[2023-12-09 15:50] LABS: Puncture Site RRA
[2023-12-09] MEDS: Insulin Glargine 30 UNITS/0.3 ML VIAL SC SCH (20:13)
[2023-12-09] MEDS: Magnesium Sulfate 3 GM in Sodium Chloride 0.9% 100 ML IVPB SCH (22:06)
[2023-12-10 08:38] LABS: #Basophils Less than 0.03 10x3/uL (0.0-0.2); #Eosinphils Less than 0.03 10x3/uL (0.0-0.7); %Basophils 0.1 % (0.0-1.0); %Lymphocytes 4.1 % (21.0-51.0); %Monocytes 2.2 % (0.0-10.0); %Neutrophils 93.2 % (42.0-75.0); Hematocrit 43.3 % (42.0-52.0); Hemoglobin 14.3 g/dL (14.0-18.0); Mean Corpuscular Hemoglobin 25.4 pg (27.0-31.0); Mean Corpuscular Volume 76.9 fL (78.0-98.0); Mean Platelet Volume 11.1 fL (7.4-10.4); Platelet Count 222 10x3/uL (130-400); RBC Distribution Width 14.5 % (11.5-14.5); Red Blood Cell (RBC) Count 5.63 mill/uL (4.70-6.10)
[2023-12-10 09:10] LABS: Anion Gap 14 mmol/L (10-20); BUN (Urea Nitrogen) 18 mg/dL (8.4-25.7); Calc. Creatinine Clearance 91 mL/min (70-130); Calcium 8.7 mg/dL (7.8-10.44); Carbon Dioxide 27 mmol/L (23-31); Chloride 105 mmol/L (98-107); Estimated GFR 87; Glucose 221 mg/dL (80-115); Potassium 3.9 mmol/L (3.5-5.1); Sodium 142 mmol/L (136-145)
[2023-12-10] MEDS: hydrALAZINE 25 MG TAB PO SCH (10:17)
[2023-12-10] MEDS ORDERED: ALPRAZolam 0.25 MG TAB PO PRN (11:27)
[2023-12-10] MEDS: Polyethylene Glycol 3350 17 GM Packet PO PRN (13:08)
[2023-12-10] MEDS: Ipratropium/Albuterol 3 ML NEB NEB SCH (13:09)
[2023-12-10] MEDS ORDERED: Benzonatate 100 MG CAP PO SCH (15:00)
[2023-12-10] MEDS: Benzonatate 100 MG CAP PO SCH (15:54)
[2023-12-10] MEDS: ALPRAZolam 0.25 MG TAB PO SCH (15:55)
[2023-12-11 05:44] LABS: #Basophils Less than 0.03 10x3/uL (0.0-0.2); #Eosinphils Less than 0.03 10x3/uL (0.0-0.7); %Basophils 0.1 % (0.0-1.0); %Lymphocytes 4.1 % (21.0-51.0); %Monocytes 2.5 % (0.0-10.0); %Neutrophils 92.7 % (42.0-75.0); Hematocrit 41.1 % (42.0-52.0); Hemoglobin 13.5 g/dL (14.0-18.0); Mean Corpuscular HGB CONC 32.8 g/dL (32.0-36.0); Mean Corpuscular Hemoglobin 25.4 pg (27.0-31.0); Mean Corpuscular Volume 77.4 fL (78.0-98.0); Mean Platelet Volume 11.7 fL (7.4-10.4); Platelet Count 202 10x3/uL (130-400); RBC Distribution Width 14.4 % (11.5-14.5); Red Blood Cell (RBC) Count 5.31 mill/uL (4.70-6.10)
[2023-12-11 06:17] LABS: Anion Gap 12 mmol/L (10-20); BUN (Urea Nitrogen) 17 mg/dL (8.4-25.7); Calc. Creatinine Clearance 83 mL/min (70-130); Calcium 8.5 mg/dL (7.8-10.44); Carbon Dioxide 29 mmol/L (23-31); Chloride 102 mmol/L (98-107); Estimated GFR 77; Glucose 381 mg/dL (80-115); Magnesium 2.4 mg/dL (1.6-2.6); Potassium 4.2 mmol/L (3.5-5.1); Sodium 139 mmol/L (136-145)
[2023-12-11] MEDS: Insulin Glargine 30 UNITS/0.3 ML VIAL SC SCH (09:30)
[2023-12-11] MEDS ORDERED: Ipratropium/Albuterol 3 ML NEB ONE (09:53)
[2023-12-11] MEDS: Insulin NPH Human Isophane 100 UNITS/ML (10 ML VIAL) SC SCH (12:40)
[2023-12-11] MEDS ORDERED: Cefuroxime 250 MG TAB PO SCH ×2 (21:00)
[2023-12-11] MEDS: Amoxicillin/Potassium Clav 875 MG TAB PO SCH (21:01)
[2023-12-12 06:26] LABS: Anion Gap 17 mmol/L (10-20); BUN (Urea Nitrogen) 16 mg/dL (8.4-25.7); Calc. Creatinine Clearance 80 mL/min (70-130); Carbon Dioxide 22 mmol/L (23-31); Chloride 101 mmol/L (98-107); Estimated GFR 74; Glucose 493 mg/dL (80-115); Potassium 3.9 mmol/L (3.5-5.1); Sodium 136 mmol/L (136-145)
[2023-12-12 06:41] LABS: #Basophils Less than 0.03 10x3/uL (0.0-0.2); #Eosinphils Less than 0.03 10x3/uL (0.0-0.7); %Basophils 0.1 % (0.0-1.0); %Eosinophils 0.1 % (0.0-10.0); %Lymphocytes 7.2 % (21.0-51.0); %Monocytes 6.9 % (0.0-10.0); %Neutrophils 85.3 % (42.0-75.0); Hematocrit 43.6 % (42.0-52.0); Hemoglobin 13.5 g/dL (14.0-18.0); Mean Corpuscular Hemoglobin 25.8 pg (27.0-31.0); Mean Corpuscular Volume 83.4 fL (78.0-98.0); Mean Platelet Volume 12.7 fL (7.4-10.4); Platelet Count 131 10x3/uL (130-400); RBC Distribution Width 14.1 % (11.5-14.5); Red Blood Cell (RBC) Count 5.23 mill/uL (4.70-6.10)
[2023-12-12] MEDS: predniSONE 20 MG TAB PO SCH (09:42)
[2023-12-12] MEDS: Insulin Glargine 30 UNITS/0.3 ML VIAL SC SCH (21:49)
[2023-12-13 06:18] LABS: #Basophils Less than 0.03 10x3/uL (0.0-0.2); #Eosinphils Less than 0.03 10x3/uL (0.0-0.7); %Basophils 0.1 % (0.0-1.0); %Eosinophils 0.2 % (0.0-10.0); %Lymphocytes 14.5 % (21.0-51.0); %Monocytes 6.3 % (0.0-10.0); %Neutrophils 78.4 % (42.0-75.0); Hematocrit 41.6 % (42.0-52.0); Hemoglobin 13.5 g/dL (14.0-18.0); Mean Corpuscular HGB CONC 32.5 g/dL (32.0-36.0); Mean Corpuscular Hemoglobin 24.7 pg (27.0-31.0); Mean Corpuscular Volume 76.2 fL (78.0-98.0); Mean Platelet Volume 11.9 fL (7.4-10.4); Platelet Count 198 10x3/uL (130-400); RBC Distribution Width 14.2 % (11.5-14.5); Red Blood Cell (RBC) Count 5.46 mill/uL (4.70-6.10)
[2023-12-13 08:03] LABS: Anion Gap 16 mmol/L (10-20); BUN (Urea Nitrogen) 14 mg/dL (8.4-25.7); Calc. Creatinine Clearance 94 mL/min (70-130); Calcium 8.3 mg/dL (7.8-10.44); Carbon Dioxide 26 mmol/L (23-31); Chloride 98 mmol/L (98-107); Estimated GFR 90; Glucose 349 mg/dL (80-115); Potassium 3.3 mmol/L (3.5-5.1); Sodium 137 mmol/L (136-145)
[2023-12-13 08:19] VITALS: TEMP 98.1
[2023-12-13] MEDS: Insulin Glargine 30 UNITS/0.3 ML VIAL SC SCH (09:18)
[2023-12-13 12:20] VITALS: BP 160/90
== END 2023-12-13 15:05 | disposition home or self-care (01) | DRG 189 ==
LOC: T4-A 21:39 → OBSVTOIN 12-08 11:35
PROVIDERS: ADMIT Student in an Organized Health Care Education/Training Program; ATTEND Internal Medicine
DX: J96.21 Acute and chronic respiratory failure with hypoxia (principal); J44.1 Chronic obstructive pulmonary disease with (acute) exacerbation; I25.10 Atherosclerotic heart disease of native coronary artery without angina pectoris; F41.9 Anxiety disorder, unspecified; E11.65 Type 2 diabetes mellitus with hyperglycemia; Z95.9 Presence of cardiac and vascular implant and graft, unspecified; Z79.4 Long term (current) use of insulin; Z79.899 Other long term (current) drug therapy; Z79.891 Long term (current) use of opiate analgesic; Z86.718 Personal history of other venous thrombosis and embolism; Z87.891 Personal history of nicotine dependence
CPT/HCPCS: 36415; 36416; 36600; 80048; 82805; 83036; 83735; 85025; 85379; 94640; J0696; J1650; J1815; J2920; J3475; J3490; J7512; J7620

== ENCOUNTER 2023-12-30 10:32 | Outpatient (CLI) | payer MEDICARE | END 2023-12-30 10:33 | disposition home or self-care (01) | LOC: RAD 10:32 | PROVIDERS: ATTEND Internal Medicine Critical Care Medicine | DX: R06.00 Dyspnea, unspecified (principal); R91.8 Other nonspecific abnormal finding of lung field; J92.9 Pleural plaque without asbestos; Z98.890 Other specified postprocedural states | CPT/HCPCS: 71046 ==

== ENCOUNTER 2024-05-31 15:36 | Emergency (ER) | payer MEDICARE ==
[2024-05-31] MEDS ORDERED: Iopamidol-370 76% 500 ML MDV (1 ML CHARGE) ONE (15:57)
[2024-05-31] MEDS ORDERED: Ondansetron PF 4 MG/2 ML Vial ONE (19:37)
[2024-05-31] MEDS ORDERED: Morphine 4 MG/ML VIAL ONE (19:37)
[2024-05-31 20:17] LABS: #Basophils 0.04 10x3/uL (0.0-0.2); #Eosinophils Less than 0.03 10x3/uL (0.0-0.7); %Basophils 0.3 % (0.0-1.0); %Lymphocytes 23.6 % (21.0-51.0); %Monocytes 6.3 % (0.0-10.0); Hematocrit 47.6 % (42.0-52.0); Hemoglobin 15.2 g/dL (14.0-18.0); Mean Corpuscular HGB CONC 31.9 g/dL (32.0-36.0); Mean Corpuscular Hemoglobin 24.1 pg (27.0-31.0); Mean Corpuscular Volume 75.4 fL (78.0-98.0); Platelet Count 245 10x3/uL (130-400); RBC Distribution Width 18.3 % (11.5-14.5); Red Blood Cell (RBC) Count 6.31 mill/uL (4.70-6.10)
[2024-05-31 20:32] LABS: ALT (SGPT) 22 U/L (8-55); AST (SGOT) 22 U/L (5-34); Alkaline Phosphatase 121 U/L (40-110); Anion Gap 15 mmol/L (10-20); BUN (Urea Nitrogen) 10 mg/dL (8.4-25.7); Bilirubin, Total 0.6 mg/dL (0.2-1.2); Calc. Creatinine Clearance 0 mL/min (70-130); Calcium 9.7 mg/dL (7.8-10.44); Carbon Dioxide 20 mmol/L (23-31); Chloride 109 mmol/L (98-107); Estimated GFR 63; Globulin 3.6 g/dL (2.4-3.5); Glucose 73 mg/dL (80-115); Lipase 20 U/L (8-78); Potassium 3.8 mmol/L (3.5-5.1); Protein, Total 7.6 g/dL (5.8-8.1); Sodium 140 mmol/L (136-145)
[2024-05-31 20:36] LABS: Troponin I Less than 0.010 ng/mL (< 0.028)
[2024-05-31 21:19] LABS: Bacteria/HPF None Seen HPF (None Seen); Bilirubin Negative (Negative); Blood, Urine Negative (Negative); CAUTI Indications for Culture Pelvic or flank pain; Clarity Clear (Clear); Glucose, Urine (Dipstick) Greater than 1000 mg/dL (Negative); Ketone, Urine Negative (Negative); Leukocyte Negative Leu/uL (Negative); Nitrite Negative (Negative); Protein, Urine (Dipstick) Negative (Neg-Trace); RBC/HPF 0-3 HPF (0-3); Specific Gravity, Urine 1.026 (1.002-1.036); Squamous Epithelial 0-3 HPF (0-3); Urobilinogen Normal mg/dL (Less than 2); WBC/HPF 0-3 HPF (0-3)
[2024-05-31 21:21] LABS: Urine Culture Reflex No No
[2024-05-31] MEDS ORDERED: diphenhydrAMINE 50 MG/ML VIAL ONE (21:32)
[2024-05-31] MEDS ORDERED: Haloperidol Lactate 5 MG/ML VIAL ONE (21:32)
== END 2024-05-31 23:27 | disposition home or self-care (01) ==
LOC: ERS 15:36
DX: R10.12 Left upper quadrant pain (principal); G89.29 Other chronic pain; I10 Essential (primary) hypertension; E11.9 Type 2 diabetes mellitus without complications; I25.2 Old myocardial infarction; I25.10 Atherosclerotic heart disease of native coronary artery without angina pectoris; J44.89 Other specified chronic obstructive pulmonary disease; K21.9 Gastro-esophageal reflux disease without esophagitis; E78.5 Hyperlipidemia, unspecified; Z95.5 Presence of coronary angioplasty implant and graft; Z87.891 Personal history of nicotine dependence; Z79.899 Other long term (current) drug therapy
CPT/HCPCS: 71045; 74177; 80053; 81001; 82962; 83690; 84484; 85025; 93005; 96361; 96365; 96366; 96375; 99284; J1200; J1630; J2272; J2405; Q9967; 36415; 36416; J2270

== ENCOUNTER 2024-07-08 01:29 | Inpatient (IN) | payer MEDICARE, OTHER ==
[2024-07-08] MEDS ORDERED: Magnesium 2 GM/50 ML BAG (IN WATER) ONE (01:42)
[2024-07-08] MEDS ORDERED: methylPREDNISolone Sod Succ/PF 125 MG/2 ML VIAL ONE (01:43)
[2024-07-08] MEDS ORDERED: Ipratropium/Albuterol 3 ML NEB ONE (01:45)
[2024-07-08] MEDS ORDERED: Lorazepam 2 MG/ML VIAL ONE (01:49)
[2024-07-08 01:50] LABS: #Basophils 0.06 10x3/uL (0.0-0.2); #Eosinophils Less than 0.03 10x3/uL (0.0-0.7); %Basophils 0.6 % (0.0-1.0); %Lymphocytes 15.4 % (21.0-51.0); %Monocytes 3.8 % (0.0-10.0); %Neutrophils 79.8 % (42.0-75.0); Hematocrit 49.8 % (42.0-52.0); Hemoglobin 15.8 g/dL (14.0-18.0); Mean Corpuscular HGB CONC 31.7 g/dL (32.0-36.0); Mean Corpuscular Hemoglobin 23.9 pg (27.0-31.0); Mean Corpuscular Volume 75.5 fL (78.0-98.0); Mean Platelet Volume 11.5 fL (7.4-10.4); Platelet Count 251 10x3/uL (130-400); RBC Distribution Width 17.6 % (11.5-14.5)
[2024-07-08 02:09] LABS: Prothrombin Time 13.1 sec (12.0-14.7)
[2024-07-08 02:12] LABS: Troponin I Less than 0.010 ng/mL (< 0.028)
[2024-07-08 02:24] LABS: ALT (SGPT) 15 U/L (8-55); AST (SGOT) 14 U/L (5-34); Alkaline Phosphatase 142 U/L (40-110); Anion Gap 14 mmol/L (10-20); BUN (Urea Nitrogen) 9 mg/dL (8.4-25.7); Bilirubin, Total 0.6 mg/dL (0.2-1.2); Calc. Creatinine Clearance 0 mL/min (70-130); Calcium 9.5 mg/dL (7.8-10.44); Carbon Dioxide 21 mmol/L (23-31); Chloride 108 mmol/L (98-107); Estimated GFR 77; Globulin 3.8 g/dL (2.4-3.5); Glucose 375 mg/dL (80-115); Protein, Total 7.8 g/dL (5.8-8.1); Sodium 139 mmol/L (136-145)
[2024-07-08] MEDS ORDERED: cefTRIAXone (ROCEPHIN) 2 GM VIAL ONE (02:45)
[2024-07-08] MEDS ORDERED: Azithromycin 500 MG VIAL ONE (02:45)
[2024-07-08] MEDS ORDERED: Sodium Chloride 0.9% 100 ML ONE (02:45)
[2024-07-08] MEDS ORDERED: Sodium Chloride 0.9% 250 ML 250 ML ONE (02:46)
[2024-07-08] MEDS ORDERED: Benzonatate 100 MG CAP PO PRN (02:50)
[2024-07-08] MEDS ORDERED: Glucagon 1 MG/ML KIT IM PRN (02:53)
[2024-07-08] MEDS ORDERED: Dextrose 50% Abboject 50 ML SYRINGE SLOW IVP PRN (02:53)
[2024-07-08] MEDS ORDERED: Dextrose 5% in Water 1,000 ML IV PRN (02:53)
[2024-07-08] MEDS ORDERED: Acetaminophen 650 MG Suppository PR PRN (02:55)
[2024-07-08] MEDS ORDERED: Acetaminophen 325 MG TAB PO PRN (02:55)
[2024-07-08] MEDS ORDERED: Calcium Carbonate 500 MG ChewTAB PO PRN (02:55)
[2024-07-08] MEDS ORDERED: Ondansetron ODT 4 MG TAB PO PRN (02:55)
[2024-07-08] MEDS ORDERED: Ondansetron PF 4 MG/2 ML Vial IVP PRN (02:55)
[2024-07-08 03:31] LABS: #Basophils 0.05 10x3/uL (0.0-0.2); #Eosinophils Less than 0.03 10x3/uL (0.0-0.7); %Basophils 0.4 % (0.0-1.0); %Monocytes 1.7 % (0.0-10.0); %Neutrophils 90.6 % (42.0-75.0); Hemoglobin 14.4 g/dL (14.0-18.0); Mean Corpuscular HGB CONC 31.3 g/dL (32.0-36.0); Mean Corpuscular Hemoglobin 24.1 pg (27.0-31.0); Mean Corpuscular Volume 77.1 fL (78.0-98.0); Mean Platelet Volume 11.7 fL (7.4-10.4); Platelet Count 212 10x3/uL (130-400); RBC Distribution Width 16.4 % (11.5-14.5); Red Blood Cell (RBC) Count 5.97 mill/uL (4.70-6.10)
[2024-07-08 03:42] LABS: Actual Bicarbonate (HCO3v) 21.2 mEq/L (22-28); Analyzer IN Cardio ER; Base Excess -4.4 mEq/L (-2.0 to +3.0); Chloride (VBG) 108 mmol/L (98-106); Hematocrit-VBG 44 % (42.0-52.0); Hemoglobin (Hb) 14.8 g/dL (12.6-17.4); Potassium (VBG) 4.47 mmol/L (3.70-5.30); Sodium 142 mmol/L (133-146); pH (venous) 7.333 (7.32-7.43)
[2024-07-08 03:43] LABS: Anion Gap 13 mmol/L (10-20); BUN (Urea Nitrogen) 8 mg/dL (8.4-25.7); Calc. Creatinine Clearance 0 mL/min (70-130); Calcium 8.1 mg/dL (7.8-10.44); Carbon Dioxide 17 mmol/L (23-31); Chloride 112 mmol/L (98-107); Estimated GFR 86; Glucose 354 mg/dL (80-115); Potassium 4.4 mmol/L (3.5-5.1); Sodium 138 mmol/L (136-145)
[2024-07-08] MEDS: Insulin Lispro 100 UNIT/ML 10 ML VIAL SC PRN ×2 (03:56→15:17)
[2024-07-08] MEDS ORDERED: Albuterol 2.5 MG (3 mL) NEB NEB PRN (04:44)
[2024-07-08 05:12] VITALS: BMI 29.2
[2024-07-08 05:41] LABS: Lactic Acid 1.74 mmol/L (0.5-2.2)
[2024-07-08] MEDS: Lactated Ringer's 1,000 ML IV SCH (05:41)
[2024-07-08 06:31] LABS: Influenza A by NAA Not Detected (NotDetected); Influenza B by NAA Not Detected (NotDetected); SARS-CoV-2 NAA Rapid Test Not Detected (NotDetected)
[2024-07-08] MEDS: Ipratropium/Albuterol 3 ML NEB NEB SCH (07:08)
[2024-07-08] MEDS: Budesonide 0.5 MG/2 ML NEB INH SCH (07:09)
[2024-07-08] MEDS: Mometasone 100 MCG HFA INHALER (RT USE) INH SCH (07:10)
[2024-07-08] MEDS ORDERED: INSULIN ASPART SC SCH (09:00)
[2024-07-08] MEDS: Amlodipine 10 MG TAB PO SCH (09:07)
[2024-07-08] MEDS: busPIRone HCl 5 MG TAB PO SCH (09:07)
[2024-07-08] MEDS: Doxycycline 100 MG CAP PO SCH (09:07)
[2024-07-08] MEDS: Carvedilol 3.125 MG TAB PO SCH (09:07)
[2024-07-08] MEDS: Atorvastatin Calcium 40 MG TAB PO SCH (09:07)
[2024-07-08] MEDS: DULoxetine 60 MG CAP PO SCH (09:07)
[2024-07-08] MEDS: Famotidine/PF 20 mg/2ml Vial SLOW IVP SCH (09:08)
[2024-07-08] MEDS: Sertraline 100 MG TAB PO SCH (09:08)
[2024-07-08] MEDS: Enoxaparin 40 MG (0.4 mL) SYRINGE SC SCH (09:08)
[2024-07-08] MEDS: methylPREDNISolone Sod Succ 40 MG VIAL IVP SCH (09:08)
[2024-07-08] MEDS: HYDROcodone/Acetaminophen 10/325 mg Tablet PO PRN (12:50)
[2024-07-08] MEDS: hydrALAZINE 25 MG TAB PO SCH (12:51)
[2024-07-09 03:52] LABS: #Basophils Less than 0.03 10x3/uL (0.0-0.2); #Eosinophils Less than 0.03 10x3/uL (0.0-0.7); %Basophils 0.1 % (0.0-1.0); %Lymphocytes 5.3 % (21.0-51.0); %Neutrophils 93.3 % (42.0-75.0); Hematocrit 43.6 % (42.0-52.0); Mean Corpuscular HGB CONC 32.1 g/dL (32.0-36.0); Mean Corpuscular Hemoglobin 24.1 pg (27.0-31.0); Mean Platelet Volume 12.3 fL (7.4-10.4); Platelet Count 210 10x3/uL (130-400); RBC Distribution Width 16.2 % (11.5-14.5); Red Blood Cell (RBC) Count 5.81 mill/uL (4.70-6.10)
[2024-07-09 03:58] LABS: ALT (SGPT) 11 U/L (8-55); AST (SGOT) 11 U/L (5-34); Albumin 3.6 g/dL (3.4-4.8); Alkaline Phosphatase 128 U/L (40-110); Anion Gap 15 mmol/L (10-20); BUN (Urea Nitrogen) 16 mg/dL (8.4-25.7); Bilirubin, Total 0.6 mg/dL (0.2-1.2); Calc. Creatinine Clearance 95 mL/min (70-130); Calcium 8.9 mg/dL (7.8-10.44); Carbon Dioxide 22 mmol/L (23-31); Chloride 101 mmol/L (98-107); Estimated GFR 79; Globulin 3.2 g/dL (2.4-3.5); Glucose 438 mg/dL (80-115); Potassium 4.6 mmol/L (3.5-5.1); Protein, Total 6.8 g/dL (5.8-8.1); Sodium 133 mmol/L (136-145)
[2024-07-09] MEDS: Insulin Glargine 30 UNITS/0.3 ML VIAL SC SCH ×2 (04:32→20:18)
[2024-07-09] MEDS: Insulin Lispro 100 UNIT/ML 10 ML VIAL SC PRN (12:42)
[2024-07-09] MEDS ORDERED: Simethicone Chewable 80 MG TAB PO PRN (16:14)
[2024-07-09] MEDS: Metoclopramide HCl 10 MG TAB PO SCH ×2 (17:20→20:19)
[2024-07-09] MEDS: Insulin Lispro 100 UNIT/ML 10 ML VIAL SC SCH (17:20)
[2024-07-10 04:23] LABS: #Basophils Less than 0.03 10x3/uL (0.0-0.2); #Eosinophils Less than 0.03 10x3/uL (0.0-0.7); %Basophils 0.1 % (0.0-1.0); %Lymphocytes 12.1 % (21.0-51.0); %Monocytes 4.1 % (0.0-10.0); %Neutrophils 83.4 % (42.0-75.0); Hematocrit 44.1 % (42.0-52.0); Mean Corpuscular HGB CONC 31.7 g/dL (32.0-36.0); Mean Corpuscular Hemoglobin 23.5 pg (27.0-31.0); Mean Platelet Volume 12.1 fL (7.4-10.4); Platelet Count 217 10x3/uL (130-400); Red Blood Cell (RBC) Count 5.96 mill/uL (4.70-6.10)
[2024-07-10 04:31] LABS: ALT (SGPT) 9 U/L (8-55); AST (SGOT) 10 U/L (5-34); Albumin 3.3 g/dL (3.4-4.8); Alkaline Phosphatase 119 U/L (40-110); Anion Gap 13 mmol/L (10-20); BUN (Urea Nitrogen) 18 mg/dL (8.4-25.7); Bilirubin, Total 0.5 mg/dL (0.2-1.2); Calc. Creatinine Clearance 91 mL/min (70-130); Calcium 8.7 mg/dL (7.8-10.44); Carbon Dioxide 25 mmol/L (23-31); Chloride 105 mmol/L (98-107); Estimated GFR 76; Glucose 369 mg/dL (80-115); Lipase 15 U/L (8-78); Potassium 3.7 mmol/L (3.5-5.1); Protein, Total 6.3 g/dL (5.8-8.1); Sodium 139 mmol/L (136-145)
[2024-07-10] MEDS: Enoxaparin 40 MG (0.4 mL) SYRINGE SC SCH (08:15)
[2024-07-10] MEDS: methylPREDNISolone Sod Succ 40 MG VIAL IVP SCH (08:20)
[2024-07-10] MEDS ORDERED: Insulin Glargine 30 UNITS/0.3 ML VIAL SC SCH (09:00)
[2024-07-10] MEDS ORDERED: Iopamidol-370 76% 500 ML MDV (1 ML CHARGE) ONE (09:39)
[2024-07-10] MEDS: Potassium Citrate 10 MEQ TAB PO SCH (17:02)
[2024-07-10] MEDS: Insulin Glargine 30 UNITS/0.3 ML VIAL SC SCH ×2 (18:15→23:30)
[2024-07-10] MEDS: Polyethylene Glycol 3350 17 GM Packet PO SCH (20:42)
[2024-07-10] MEDS: Pantoprazole 40 MG DR.TAB PO SCH (20:43)
[2024-07-10] MEDS: Senokot S 8.6-50 MG TAB PO SCH (20:44)
[2024-07-11 05:58] LABS: ALT (SGPT) 11 U/L (8-55); AST (SGOT) 11 U/L (5-34); Albumin 3.5 g/dL (3.4-4.8); Alkaline Phosphatase 120 U/L (40-110); Anion Gap 13 mmol/L (10-20); BUN (Urea Nitrogen) 11 mg/dL (8.4-25.7); Bilirubin, Total 0.5 mg/dL (0.2-1.2); Calc. Creatinine Clearance 107 mL/min (70-130); Calcium 8.8 mg/dL (7.8-10.44); Carbon Dioxide 29 mmol/L (23-31); Chloride 103 mmol/L (98-107); Estimated GFR 93; Globulin 3.1 g/dL (2.4-3.5); Glucose 226 mg/dL (80-115); Potassium 3.1 mmol/L (3.5-5.1); Protein, Total 6.6 g/dL (5.8-8.1); Sodium 142 mmol/L (136-145)
[2024-07-11] MEDS ORDERED: Linaclotide [Linzess] 145 MCG Capsule PO SCH (07:30)
[2024-07-11] MEDS: Empagliflozin 25 MG TAB PO SCH (08:28)
[2024-07-11] MEDS: Senokot S 8.6-50 MG TAB PO SCH (08:28)
[2024-07-11] MEDS: predniSONE 20 MG TAB PO SCH (08:29)
[2024-07-11] MEDS: Clopidogrel Bisulfate 75 MG TAB PO SCH (08:29)
[2024-07-11] MEDS ORDERED: Polyethylene Glycol 3350 17 GM Packet PO SCH (09:00)
[2024-07-11 16:39] VITALS: BP 116/68; TEMP 98.1
== END 2024-07-11 11:30 | disposition home or self-care (01) | DRG 189 ==
LOC: ERS 01:29 → IMCU/EMU 03:03 → MSONC 07-09 17:50
PROVIDERS: ADMIT Student in an Organized Health Care Education/Training Program; ATTEND Family Medicine
DX: J96.21 Acute and chronic respiratory failure with hypoxia (principal); J44.1 Chronic obstructive pulmonary disease with (acute) exacerbation; E87.20 Acidosis, unspecified; E78.5 Hyperlipidemia, unspecified; I10 Essential (primary) hypertension; E11.65 Type 2 diabetes mellitus with hyperglycemia; K21.9 Gastro-esophageal reflux disease without esophagitis; E11.9 Type 2 diabetes mellitus without complications; F41.9 Anxiety disorder, unspecified; F10.90 Alcohol use, unspecified, uncomplicated; K59.00 Constipation, unspecified; T38.0X5A Adverse effect of glucocorticoids and synthetic analogues, initial encounter; X58.XXXA Exposure to other specified factors, initial encounter; Z98.52 Vasectomy status; Z88.5 Allergy status to narcotic agent; Z95.5 Presence of coronary angioplasty implant and graft; I25.2 Old myocardial infarction
CPT/HCPCS: 36415; 36416; 71045; 74178; 80053; 82805; 83605; 83690; 83735; 83880; 85025; 85610; 85730; 87040; 87633; 93005; 94640; 94644; 94660; 94760; 96361; 96365; 96367; 96375; J0456; J0696; J1650; J1815; J2060; J2919; J3475; J3490; J7050; J7120; J7512; J7620; J7626; Q9967

== ENCOUNTER 2025-05-28 19:10 | Inpatient (IN) | payer MEDICARE, OTHER ==
[2025-05-28] MEDS ORDERED: Magnesium 2 GM/50 ML BAG (IN WATER) ONE (19:51)
[2025-05-28] MEDS ORDERED: niCARdipine 25 MG/10 ML SDV ONE (19:51)
[2025-05-28] MEDS ORDERED: Azithromycin 500 MG VIAL ONE (20:18)
[2025-05-28] MEDS ORDERED: cefTRIAXone (ROCEPHIN) 1 GM VIAL ONE (20:18)
[2025-05-28 20:26] LABS: #Basophils 0.10 10x3/uL (0.0-0.2); #Eosinophils 1.41 10x3/uL (0.0-0.7); #Monocytes 0.48 10x3/uL (0.11-0.59); #Neutrophils 7.25 10x3/uL (1.40-6.50); %Basophils 0.9 % (0.0-1.0); %Eosinophils 12.1 % (0.0-10.0); %Lymphocytes 16.7 % (21.0-51.0); %Monocytes 4.3 % (0.0-10.0); %Neutrophils 65.2 % (42.0-75.0); Hematocrit 52.9 % (42.0-52.0); Hemoglobin 16.1 g/dL (14.0-18.0); Mean Corpuscular Hemoglobin 23.3 pg (27.0-31.0); Mean Corpuscular Volume 74.8 fL (78.0-98.0); Platelet Count 216 10x3/uL (130-400); Red Blood Cell (RBC) Count 7.09 mill/uL (4.70-6.10); White Blood Cell (WBC) Count 11.11 10x3/uL (4.8-10.8)
[2025-05-28 20:28] LABS: Actual Bicarbonate (HCO3v) 22.8 mEq/L (22-28); Base Excess -1.1 mEq/L (-2.0 to +3.0); Calcium, Ionized (venous) 1.15 mmol/L (1.16-1.32); Chloride (VBG) 106 mmol/L (98-106); Hematocrit-VBG 51 % (42.0-52.0); Hemoglobin (Hb) 17.3 g/dL (12.6-17.4); Potassium (VBG) 3.54 mmol/L (3.70-5.30); Sodium 145 mmol/L (133-146)
[2025-05-28 20:33] LABS: ALT (SGPT) 12 U/L (Less than 45); AST (SGOT) 23 U/L (11-34); Albumin 3.9 g/dL (3.1-4.5); Alkaline Phosphatase 158 U/L (40-110); Anion Gap 16 mmol/L (10-20); BUN (Urea Nitrogen) 15 mg/dL (8.4-25.7); Bilirubin, Total 0.7 mg/dL (0.3-1.2); Calc. Creatinine Clearance 0 mL/min (70-130); Calcium 9.2 mg/dL (7.8-10.44); Carbon Dioxide 21 mmol/L (23-31); Chloride 111 mmol/L (98-107); Globulin 3.6 g/dL (2.4-3.5); Glucose 156 mg/dL (80-115); Potassium 3.7 mmol/L (3.5-5.1); Sodium 144 mmol/L (136-145)
[2025-05-28] MEDS ORDERED: Ondansetron PF 4 MG/2 ML Vial IVP PRN (21:02)
[2025-05-28] MEDS ORDERED: Acetaminophen 325 MG TAB PO PRN (21:02)
[2025-05-28] MEDS ORDERED: Glucagon 1 MG/ML KIT IM PRN (21:02)
[2025-05-28] MEDS ORDERED: Guaifenesin DM 100-10/5 ML UDCUP PO PRN (21:02)
[2025-05-28] MEDS ORDERED: Dextrose 50% Abboject 50 ML SYRINGE SLOW IVP PRN (21:02)
[2025-05-28] MEDS ORDERED: Ondansetron PF 4 MG/2 ML Vial ONE (21:32)
[2025-05-29 01:10] LABS: Bacteria/HPF None Seen HPF (None Seen); Glucose, Urine (Dipstick) Greater than 1000 mg/dL (Negative); Leukocyte Negative Leu/uL (Negative); Protein, Urine (Dipstick) 50 mg/dL (Neg-Trace); RBC/HPF 0-3 HPF (0-3); Specific Gravity, Urine 1.037 (1.002-1.036)
[2025-05-29 01:13] LABS: Legionella Urinary Ag Negative (Negative)
[2025-05-29 01:14] LABS: Strep pneumo Urine Ag NEGATIVE (NEGATIVE)
[2025-05-29] MEDS: Mometasone 200 MCG/Formoterol 5 MCG 120 PUFF INHALER INH SCH (06:05)
[2025-05-29] MEDS: Carvedilol 3.125 MG TAB PO SCH (09:27)
[2025-05-29] MEDS: Senokot S 8.6-50 MG TAB PO SCH (09:27)
[2025-05-29] MEDS: Insulin Glargine 30 UNITS/0.3 ML VIAL SC SCH (09:27)
[2025-05-29] MEDS: Enoxaparin 40 MG (0.4 mL) SYRINGE SC SCH (09:27)
[2025-05-29] MEDS: Sertraline 25 MG TAB PO SCH (09:27)
[2025-05-29] MEDS: Pantoprazole 40 MG VIAL IVP SCH (09:28)
[2025-05-29] MEDS: Albuterol 2.5 MG (3 mL) NEB NEB PRN (12:00)
[2025-05-29] MEDS: Acetylcysteine 20% 200 MG/ML 30 ML VIAL PO SCH (12:06)
[2025-05-29] MEDS: Magnesium 2 GM/50 ML(in water) 2 GM in Premix 1 BAG IVPB SCH (12:07)
[2025-05-29 12:23] LABS: Anion Gap 19 mmol/L (10-20); BUN (Urea Nitrogen) 21 mg/dL (8.4-25.7); Calc. Creatinine Clearance 75 mL/min (70-130); Calcium 9.1 mg/dL (7.8-10.44); Carbon Dioxide 19 mmol/L (23-31); Chloride 106 mmol/L (98-107); Glucose 264 mg/dL (80-115); Potassium 4.0 mmol/L (3.5-5.1); Sodium 140 mmol/L (136-145)
[2025-05-29 12:50] LABS: #Basophils Less than 0.03 10x3/uL (0.0-0.2); #Eosinophils Less than 0.03 10x3/uL (0.0-0.7); #Monocytes 0.14 10x3/uL (0.11-0.59); #Neutrophils 11.26 10x3/uL (1.40-6.50); %Basophils 0.2 % (0.0-1.0); %Eosinophils 0.1 % (0.0-10.0); %Lymphocytes 8.3 % (21.0-51.0); %Monocytes 1.1 % (0.0-10.0); %Neutrophils 90.0 % (42.0-75.0); Hematocrit 46.7 % (42.0-52.0); Hemoglobin 14.3 g/dL (14.0-18.0); Mean Corpuscular Hemoglobin 22.8 pg (27.0-31.0); Mean Corpuscular Volume 74.5 fL (78.0-98.0); Platelet Count 228 10x3/uL (130-400); Red Blood Cell (RBC) Count 6.27 mill/uL (4.70-6.10); White Blood Cell (WBC) Count 12.51 10x3/uL (4.8-10.8)
[2025-05-29] MEDS ORDERED: Iopamidol-370 76% 500 ML MDV (1 ML CHARGE) ONE (12:51)
[2025-05-29 14:42] LABS: Burr Cells SLIGHT = 2-5 cells HPF (0-1); Macrocytosis SLIGHT = 6-15 cells HPF (0-5); Microcytosis SLIGHT = 6-15 cells HPF (0-5); Platelet Adequacy Comment Platelets Decreased; Polychromasia SLIGHT = 2-3 cells HPF (0-2)
[2025-05-29] MEDS: Azithromycin 500 MG in Sodium Chloride 0.9% 250 ML 250 ML IVPB SCH (20:20)
[2025-05-30] MEDS: HYDROcodone/Acetaminophen 10/325 mg Tablet PO SCH (05:53)
[2025-05-30] MEDS: Mupirocin 1 GM TUBE NASAL DECOLONIZATION NASAL SCH (20:28)
[2025-05-31 05:13] LABS: Anion Gap 14 mmol/L (10-20); BUN (Urea Nitrogen) 34 mg/dL (8.4-25.7); Calc. Creatinine Clearance 74 mL/min (70-130); Calcium 8.3 mg/dL (7.8-10.44); Carbon Dioxide 25 mmol/L (23-31); Chloride 107 mmol/L (98-107); Glucose 190 mg/dL (80-115); Potassium 4.4 mmol/L (3.5-5.1); Sodium 142 mmol/L (136-145)
[2025-05-31 05:17] LABS: #Basophils Less than 0.03 10x3/uL (0.0-0.2); #Eosinophils Less than 0.03 10x3/uL (0.0-0.7); #Monocytes 0.26 10x3/uL (0.11-0.59); #Neutrophils 13.26 10x3/uL (1.40-6.50); %Basophils 0.1 % (0.0-1.0); %Eosinophils 0.0 % (0.0-10.0); %Lymphocytes 3.3 % (21.0-51.0); %Monocytes 1.8 % (0.0-10.0); %Neutrophils 94.4 % (42.0-75.0); Hematocrit 43.8 % (42.0-52.0); Hemoglobin 14.0 g/dL (14.0-18.0); Mean Corpuscular Hemoglobin 23.6 pg (27.0-31.0); Mean Corpuscular Volume 74.0 fL (78.0-98.0); Platelet Count 211 10x3/uL (130-400); Red Blood Cell (RBC) Count 5.92 mill/uL (4.70-6.10); White Blood Cell (WBC) Count 14.06 10x3/uL (4.8-10.8)
[2025-06-01 07:28] LABS: Anion Gap 13 mmol/L (10-20); BUN (Urea Nitrogen) 24 mg/dL (8.4-25.7); Calc. Creatinine Clearance 94 mL/min (70-130); Calcium 8.3 mg/dL (7.8-10.44); Carbon Dioxide 27 mmol/L (23-31); Chloride 109 mmol/L (98-107); Glucose 240 mg/dL (80-115); Potassium 4.1 mmol/L (3.5-5.1); Sodium 145 mmol/L (136-145)
[2025-06-01 07:33] LABS: #Basophils Less than 0.03 10x3/uL (0.0-0.2); #Eosinophils Less than 0.03 10x3/uL (0.0-0.7); #Monocytes 0.36 10x3/uL (0.11-0.59); #Neutrophils 9.95 10x3/uL (1.40-6.50); %Basophils 0.1 % (0.0-1.0); %Eosinophils 0.0 % (0.0-10.0); %Lymphocytes 4.8 % (21.0-51.0); %Monocytes 3.3 % (0.0-10.0); %Neutrophils 91.6 % (42.0-75.0); Hematocrit 45.0 % (42.0-52.0); Hemoglobin 14.3 g/dL (14.0-18.0); Mean Corpuscular Hemoglobin 23.6 pg (27.0-31.0); Mean Corpuscular Volume 74.1 fL (78.0-98.0); Platelet Count 263 10x3/uL (130-400); Red Blood Cell (RBC) Count 6.07 mill/uL (4.70-6.10); White Blood Cell (WBC) Count 10.86 10x3/uL (4.8-10.8)
[2025-06-01 08:49] LABS: Anisocytosis SLIGHT = 6-15 cells HPF (0-5); Burr Cells SLIGHT = 2-5 cells HPF (0-1); Microcytosis SLIGHT = 6-15 cells HPF (0-5); Platelet Adequacy Comment Platelets Normal; Polychromasia SLIGHT = 2-3 cells HPF (0-2)
[2025-06-01] MEDS: Insulin Glargine 30 UNITS/0.3 ML VIAL SC SCH (12:50)
[2025-06-02 09:24] LABS: Anion Gap 13 mmol/L (10-20); BUN (Urea Nitrogen) 17 mg/dL (8.4-25.7); Calc. Creatinine Clearance 93 mL/min (70-130); Calcium 8.6 mg/dL (7.8-10.44); Carbon Dioxide 26 mmol/L (23-31); Chloride 105 mmol/L (98-107); Glucose 250 mg/dL (80-115); Potassium 3.9 mmol/L (3.5-5.1); Sodium 140 mmol/L (136-145)
[2025-06-02 09:25] LABS: #Basophils Less than 0.03 10x3/uL (0.0-0.2); #Eosinophils Less than 0.03 10x3/uL (0.0-0.7); #Monocytes 0.34 10x3/uL (0.11-0.59); #Neutrophils 8.62 10x3/uL (1.40-6.50); %Basophils 0.0 % (0.0-1.0); %Eosinophils 0.0 % (0.0-10.0); %Lymphocytes 6.8 % (21.0-51.0); %Monocytes 3.5 % (0.0-10.0); %Neutrophils 89.3 % (42.0-75.0); Hematocrit 47.6 % (42.0-52.0); Hemoglobin 15.1 g/dL (14.0-18.0); Mean Corpuscular Hemoglobin 23.5 pg (27.0-31.0); Mean Corpuscular Volume 74.0 fL (78.0-98.0); Platelet Count 200 10x3/uL (130-400); Red Blood Cell (RBC) Count 6.43 mill/uL (4.70-6.10); White Blood Cell (WBC) Count 9.66 10x3/uL (4.8-10.8)
[2025-06-02 09:46] LABS: Ovalocytes SLIGHT = 2-5 cells HPF (0-1); Platelet Adequacy Comment Platelets Normal; Schistocytes SLIGHT = 2-5 cells HPF (0-1); Smudge Cells 2.0 %
[2025-06-02 12:11] VITALS: BMI 29.2
[2025-06-03 05:48] LABS: #Basophils Less than 0.03 10x3/uL (0.0-0.2); #Eosinophils Less than 0.03 10x3/uL (0.0-0.7); #Monocytes 0.38 10x3/uL (0.11-0.59); #Neutrophils 8.53 10x3/uL (1.40-6.50); %Basophils 0.0 % (0.0-1.0); %Eosinophils 0.0 % (0.0-10.0); %Lymphocytes 8.2 % (21.0-51.0); %Monocytes 3.9 % (0.0-10.0); %Neutrophils 87.6 % (42.0-75.0); Hematocrit 48.2 % (42.0-52.0); Hemoglobin 14.8 g/dL (14.0-18.0); Mean Corpuscular Hemoglobin 22.9 pg (27.0-31.0); Mean Corpuscular Volume 74.6 fL (78.0-98.0); Platelet Count 219 10x3/uL (130-400); Red Blood Cell (RBC) Count 6.46 mill/uL (4.70-6.10); White Blood Cell (WBC) Count 9.74 10x3/uL (4.8-10.8)
[2025-06-03 05:57] LABS: Anion Gap 14 mmol/L (10-20); BUN (Urea Nitrogen) 18 mg/dL (8.4-25.7); Calc. Creatinine Clearance 90 mL/min (70-130); Calcium 8.7 mg/dL (7.8-10.44); Carbon Dioxide 28 mmol/L (23-31); Chloride 105 mmol/L (98-107); Glucose 247 mg/dL (80-115); Potassium 3.7 mmol/L (3.5-5.1); Sodium 143 mmol/L (136-145)
[2025-06-03 06:01] VITALS: BMI 30.9
[2025-06-03 16:23] VITALS: BP 131/77; TEMP 98.2
== END 2025-06-03 17:04 | disposition home health service (06) | DRG 177 ==
LOC: ERS 19:10 → IMCU/EMU 20:56 → T4-A 05-31 11:54
PROVIDERS: ADMIT Student in an Organized Health Care Education/Training Program; ATTEND Internal Medicine
DX: J69.0 Pneumonitis due to inhalation of food and vomit (principal); J96.21 Acute and chronic respiratory failure with hypoxia; I45.2 Bifascicular block; J44.1 Chronic obstructive pulmonary disease with (acute) exacerbation; J45.901 Unspecified asthma with (acute) exacerbation; I10 Essential (primary) hypertension; I25.10 Atherosclerotic heart disease of native coronary artery without angina pectoris; E78.5 Hyperlipidemia, unspecified; K21.9 Gastro-esophageal reflux disease without esophagitis; R13.12 Dysphagia, oropharyngeal phase; F32.A Depression, unspecified; F41.9 Anxiety disorder, unspecified; E11.65 Type 2 diabetes mellitus with hyperglycemia; E11.42 Type 2 diabetes mellitus with diabetic polyneuropathy; I45.19 Other right bundle-branch block; I25.2 Old myocardial infarction; Z99.81 Dependence on supplemental oxygen; Z98.890 Other specified postprocedural states; Z90.89 Acquired absence of other organs; Z98.52 Vasectomy status; Z95.5 Presence of coronary angioplasty implant and graft; Z88.6 Allergy status to analgesic agent; Z79.899 Other long term (current) drug therapy; Z79.02 Long term (current) use of antithrombotics/antiplatelets; Z87.891 Personal history of nicotine dependence
CPT/HCPCS: 36415; 36416; 71045; 71275; 80048; 80053; 81001; 82805; 83605; 83880; 84145; 84484; 85025; 85379; 86141; 87040; 87428; 87449; 87633; 87798; 87899; 93005; 94640; 94660; 96365; 96367; 96375; J0132; J0456; J0696; J1650; J1815; J2405; J2470; J2543; J2919; J3475; J7050; J7611; J7626; Q9967

== ENCOUNTER 2025-06-26 10:41 | Outpatient (CLI) | payer MEDICARE, OTHER | END 2025-06-26 10:42 | disposition home or self-care (01) | LOC: RAD 10:41 | PROVIDERS: ATTEND Internal Medicine Critical Care Medicine | DX: R06.00 Dyspnea, unspecified (principal) | CPT/HCPCS: 71046 ==